=== PATIENT | male | born 1945 | race Caucasian/White ===

== ENCOUNTER 2024-08-05 01:52 | Inpatient (IN) | payer OTHER, SELFPAY ==
--- NOTE | 2024-08-05 | ECG_ITS ---
Test Reason : qtc Blood Pressure : / mmHG Vent. Rate : 065 BPM Atrial Rate : 065 BPM P-R Int : 188 ms QRS Dur : 146 ms QT Int : 472 ms P-R-T Axes : 086 -53 043 degrees QTc Int : 490 ms Normal sinus rhythm Right bundle branch block Left anterior fascicular block Bifascicular block Minimal voltage criteria for LVH, may be normal variant ( R in aVL ) Abnormal ECG No previous ECGs available Referred By: Karla Mackey Electronically Signed By:DORIS CHOWDHURY
[2024-08-05 02:22] VITALS: BP 150/67; PULSE 59; RESP 16; TEMP 36.1; O2SAT 100
[2024-08-05 03:08] VITALS: BMI 34.5
--- NOTE | 2024-08-05 05:43 | PC.ADMIT ---
Danny Duarte is a 79 years old male with active medical problems for parkinson's disease, HTN, CAD, RBBB with bradycardia and CHF, who presents to [facility] ED via EMS for c/o Val. Per records from [facility], starting June of 2024, pt begun decompensating. This is his 3rd time being sectioned in his community for disorganized behavior. pt continues to have hyperreligious deluisions thinking he's the Messiah. pt also have delusions about being involved in [place] conflict. pt believes the [place] forces are monitoring him, and he's been acting on these delusions by going down the halls of his apartments naked and knocking on his neighbors doors. His precipitating factor for all these behaviors according to his sister in-law and psychiatrist is as a result of the loss of his brother 3months ago and medication adherence is also unclear. Pt arrived on S1 on 08/05/24 with admitting diagnosis for bipolar d/o with val.pt is alert and oriented x3 with limited insight into situation , signed a CV, on 5mins check. pt is calm and pleasant, engaging, maintaining appropriate eye contact during interactions, and complaint with admission process. pt is [place], uses bilateral hearing aides that need to be charged. pt presents with a happy mood, full range affect, pressured speech and is quite grandiose with baptist content, saying he is the Messiah.pt denied pain. pt denied SI/HI/AVH. VSS unremarkable. pt has no visible skin issues excpet he does have bilateral lower extremity non-pitting edema which he wears TEDs. Med. rec completed and provider notified. Hospitalist consulted for medical clearance. Belongings inventoried and secured.
[2024-08-05 08:08] LABS: Valproate 59.3 mcg/mL (50.0-100.0)
--- NOTE | 2024-08-05 08:25 | HO.PSYADMNOT ---
HPI Date of Service: 08/05/24 Chief Complaint: Medical history Sources of Information: patient interviewed, chart reviewed and crisis/core team assessment reviewed HPI Subjective Notes: Gaines Warning (given and shows understanding) and Conditional Voluntary Narrative: Mr. Duarte is a 79 year-old male with hx of Bipolar Disorder. He was brought to [facility] presenting with symptoms of angeli including grandiose delusions thinking that he is the Messiah, labile, hyperverbal, decreased need for sleep. He denies SI/HI. Per crisis report, pt was knocking on people's door at 2am and neighbors called the police. According to [facility] records, pt was recently discharged on 07/26/24 from [facility] after treatment of angeli. Utox negative for cocaine/opioids/fentanyl. THC not checked, which pt reports using. BAL negative. On the unit, pt presents with grandiose and labile affect. He reports he is the Messiah. He denies that he hears voices telling him that he is the Messiah but receives messages from God although reports does not hear God's voice. He reports he the task of saving Jews from evils of others. He reports he has to deliver sermons to the world. He reports he has unlimited amounts of money because his money comes from [place] economic system, not from world economy. He reports he was knocking on neighbor's doors at around 2am. He reports he was reliving the holocaust that night and was alerting people. He denies any plan or thoughts of wanting to hurt anyone but does admit that he was yelling racial slurs to people on the streets because he was sure they were trying to harm Jews. He reports using marijuana, which he reports makes him even smarter, I am a genious, even smarter than [facility]. He wants to encouraged everyone to smoke cannabis because he believes it opens your mind, you should try it. He is upset about people not believing that he is the Messiah. He is calling several times from the unit to his sister in law hoping she will finally accept that I am not crazy, I am the Messiah! He reports he does not need to sleep and always feels rested. Collateral information gathered from sister in law- Michelle who reports pt has been calling them several times during the day and night telling them that he is the Messaih. He also insisting that the family must use cannabis and insists on talking with his niece about it. Michelle reports she has received calls from apartment complex where he resides stating that he is knocking on neighrbors' door very late at night and once showed up naked to one neighbor which later he had reported that he was feeling lonely. Collateral information gathered from his psych prescribed, Nemo who reports that she has worked with him for the past 2 years. Usually when stable, very calm and polite. She reports he had knee surgery about a year ago and when transition to rehab mood stabilizer was stopped. She reports about 9 months ago he started to present with increase symptoms of angeli as described above (grandiose delusions, decreased need for sleep labile, hyperverbal) and it has been difficult to stabilize him. He has been for a long time on abilify and depakote. Past Psychiatric History: Inpt: about 4 inpt admission. Most recently 07/26 at [facility] OP:Nemo Alexandra at [facility] [phone] Past med trials: lithium (tremor), abilify Hx of suicide attempt: . Medical Evaluation Reviewed: Yes cbc with slight elevation in leukocytosis WBC 12, afebrile. CMP no electrolyte abnormalities, BUN 24, Cr 1.24 LFts wnl. Valproic level on admission at [facility] was 11.3 which indicates pt not taking depakote as prescribed. [facility] Family History: unknown Social History: Pt from [place], [place]. Never , no children. He has a brother in [facility]. Substance History: daily use of cannabinoids. utox for canabbinoids not completed to confirm this. Trauma History: denies Diagnostics Vital Signs (24Hr): Vital Signs - 24 hr 08/05/24 02:22 Temperature 97 F Pulse Rate 59 Respiratory Rate 16 Blood Pressure 150/67 H Pulse Oximetry 100 Oxygen Delivery Method Room Air BMI result Body Mass Index 34.5 Labs 08/06/24 07:31 Labs: Laboratory Results - last 48 hr 08/05/24 07:33 Valproic Acid 59.3 Meds/Allergies Meds Home Medications ?Medication ?Instructions ?Recorded ?Confirmed ?Type DEKAs Plus (folic acid) 1 cap PO DAILY 08/05/24 08/05/24 History Depakote 750 mg PO BID 08/05/24 08/05/24 History aripiprazole 20 mg tablet 20 mg PO DAILY 08/05/24 08/05/24 History aspirin 81 mg chewable tablet 1 tab PO DAILY 08/05/24 08/05/24 History atorvastatin 10 mg tablet 10 mg PO DAILY 08/05/24 08/05/24 History bumetanide 2 mg PO DAILY 08/05/24 08/05/24 History ferrous sulfate 324 mg PO DAILY 08/05/24 08/05/24 History hydrochlorothiazide 25 mg tablet 25 mg PO DAILY 08/05/24 08/05/24 History melatonin 5 mg tablet 5 mg PO BEDTIME PRN Sleep 08/05/24 08/05/24 History polyethylene glycol 3350 17 gram 17 g PO DAILY PRN constipation 08/05/24 08/05/24 History oral powder packet potassium chloride 20 meq PO DAILY 08/05/24 08/05/24 History quetiapine 50 mg tablet 50 mg PO Q6H PRN Insomnia, 08/05/24 08/06/24 History anxiety, agitation senna 2 tab PO BEDTIME 08/05/24 08/05/24 History tamsulosin 0.4 mg capsule 0.4 mg PO DAILY 08/05/24 08/05/24 History trazodone 100 mg tablet 100 mg PO BEDTIME 08/05/24 08/05/24 History apixaban 2.5 mg tablet (Eliquis) 2.5 mg PO BID 08/06/24 08/06/24 History Allergies Allergies Allergy/AdvReac Type Severity Reaction Status Date / Time Unable to Assess Allergy Verified 08/05/24 03:15 Mental Status Exam Mental Status Exam Narrative: Appearance: wearing casual clothing, fair hygiene, in NAD Behavior: overly friendly Psychomotor: no agitation or retardation noted. Noted bilateral cogwheel, resting tremors- s/s of Parkinsonism. Speech: clear, regular rate, hyperverbal, spontaneous TP: some flight of ideas but mostly repetitive about grandiose delusions of being the messiah TC: being the messiah Mood: great Affect: labile SI: none HI: none VH/AH: internally preoccupied Delusions: grandiose delusions Insight/judgment: impaired x 2. memory/cog: alert, oriented x 3. Assessment & Plan Assessment & Plan (1) Bipolar 1 disorder, manic, moderate: Status: Acute Code(s): F31.12 - Bipolar disorder, current episode manic without psychotic features, moderate Plan Mr. Duarte is a 79 year-old male with hx of Bipolar Disorder type one. currently presenting with manic episode including decrease need for sleep, grandiose delusions of being the messiah, unlimited amounts of money coming from God.He has had 3 inpt psychiatric admission in the past 2 months. He is currently on depakote and abilify. noted parkinsonism. spoke with sister in law. We discussed risks, benefits and alternative treatment options. will add olanzapine prn, may schedule some at night due to poor sleep. PLAN 1. admit to S1, CV, 15 minutes checks for safety 2. check depakote level tomorrow morning 3. continue abilify, but will add olanzapine 10mg po qhs with prn doses. 4. aftercare planning. Patient educated on: diagnosis, medication risk/benefits and substance abuse Reason for continued inpatient stay Substantial Risk for: harm to others and inability to function Statement Statement: I have reviewed the history and physical and performed a pertinent examination on my patient. No changes have occurred unless specified. If the History and Physical was not performed prior to admission, the Hospitalist's service will be consulted for completing the admission physical. Time Spent With Patient Time: Total time managing care of this patient today ____ minutes.
[2024-08-05 10:14] VITALS: BP 145/93; PULSE 68; RESP 16; TEMP 36.4; O2SAT 98
[2024-08-05] MEDS: hydroCHLOROthiazide 25 MG TABLET PO (10:14)
[2024-08-05] MEDS: Divalproex Sodium 250 MG TABLET.DR 750 MG PO ×2 (10:14→20:33)
[2024-08-05] MEDS: Aspirin 81 MG TAB.CHEW PO (10:15)
[2024-08-05] MEDS: Tamsulosin HCL 0.4 MG CAPSULE PO (10:15)
[2024-08-05] MEDS: Atorvastatin Calcium 10 MG TABLET PO (10:15)
[2024-08-05] MEDS: Potassium Chloride ER 20 MEQ TAB.ER.PRT PO (10:15)
[2024-08-05] MEDS: ARIPiprazole 20 MG TABLET PO (10:15)
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
[2024-08-05 20:00] VITALS: BP 119/56; PULSE 69; RESP 16; TEMP 36.3; O2SAT 96
[2024-08-05] MEDS: traZODone HCL 100 MG TABLET PO (20:34)
[2024-08-06 08:03] LABS: Estimated Average Glucose 137 mg/dL; Hemoglobin A1C 165.1783 umol/L; Hemoglobin A1c % 6.4 % (<6.0); Total Hemoglobin (HGBA1C) 3583.8074 umol/L
[2024-08-06 08:14] LABS: Alanine Aminotransferase 29 U/L (0-40); Albumin Level 3.9 g/dL (3.5-5.0); Alkaline Phosphatase 67 U/L (39-117); Anion Gap 11 (12-20); Aspartate Amino Transferase 24 U/L (5-37); Bilirubin Total 0.7 mg/dL (0.0-1.0); Blood Urea Nitrogen 28 mg/dL (9-16); Calcium 9.6 mg/dL (8.4-10.2); Carbon Dioxide 29 mmol/L (22-29); Chloride 101 mmol/L (96-108); Cholesterol 133 mg/dL (<200); Estimated Glomerular Filt Rate > 60; Glucose Fasting 130 mg/dL (60-99); HDL Cholesterol 55 mg/dL (>40); LDL Cholesterol Calculated 59 mg/dL (<100); Potassium 3.5 mmol/L (3.3-5.1); Sodium 137 mmol/L (135-145); Total Protein 6.8 g/dL (6.5-8.0); Triglycerides 97 mg/dL (<150)
[2024-08-06 08:28] LABS: Thyroid Stimulating Hormone 0.87 uIU/mL (0.32-4.0)
[2024-08-06 08:35] LABS: Vitamin B12 547 pg/mL (200-900)
[2024-08-06 09:05] VITALS: BP 146/63; PULSE 82; RESP 18; TEMP 36.6; O2SAT 95
[2024-08-06] MEDS: Tamsulosin HCL 0.4 MG CAPSULE PO (09:08)
[2024-08-06] MEDS: ARIPiprazole 20 MG TABLET PO (09:08)
[2024-08-06] MEDS: Potassium Chloride ER 20 MEQ TAB.ER.PRT PO (09:08)
[2024-08-06] MEDS: Atorvastatin Calcium 10 MG TABLET PO (09:08)
[2024-08-06] MEDS: Aspirin 81 MG TAB.CHEW PO (09:08)
[2024-08-06] MEDS: hydroCHLOROthiazide 25 MG TABLET PO (09:08)
[2024-08-06] MEDS: Divalproex Sodium 250 MG TABLET.DR 750 MG PO ×2 (09:08→20:50)
--- NOTE | 2024-08-06 11:21 | PHA.MEDREC ---
Pharmacy Consult ? Medication Reconciliation Pharmacy has reviewed the medication reconciliation done by nursing using med list from [facility]. Notably, Apixaban 2.5mg BID was missing and it seems like their home Depakote ER was interchanged to an IR formulation at [facility]. Will alert provider that patient should be on Apixaban and ensure they are okay to stay with the IR Depakote that is ordered.
[2024-08-06] MEDS: Apixaban 2.5 MG TABLET PO (12:17)
--- NOTE | 2024-08-06 15:59 | HO.PSYCHPN ---
Subjective Subjective Date of Service: 08/07/24 Reason For Visit: Medical history Subjective Notes: Conditional Voluntary Interim History: Pt slept only 3hrs. He was up at 6am calling sister in law insisting on her trying cannabis and accepting that he is the [facility]. He had showed, defecated in the shower and tried to pushed down the drain with his feet, staff trying to redirect, but pt stated everything is okay, I'm the Messiah. He continues to present as hyperverbal. 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 He insists he is not a patient here, but understands that God may want him here to help others. Mental Status Exam Mental Status Exam Narrative: Appearance: wearing casual clothing, fair hygiene, in NAD Behavior: overly friendly Psychomotor: no agitation or retardation noted Speech: clear, regular rate, hyperverbal, spontaneous TP: some flight of ideas but mostly repetitive about grandiose delusions of being the [facility] TC: being the [facility] Mood: great Affect: labile SI: none HI: none VH/AH: internally preoccupied Delusions: grandiose delusions Insight/judgment: impaired x 2. memory/cog: alert, oriented x 3. Diagnostics Vital Signs (24Hr): Vital Signs - 24 hr 08/05/24 20:00 08/06/24 09:05 Temperature 97.4 F 97.8 F Pulse Rate 69 82 Respiratory Rate 16 18 Blood Pressure 119/56 L 146/63 H Pulse Oximetry 96 95 Oxygen Delivery Method Room Air Room Air BMI result Body Mass Index 34.5 Labs 08/06/24 07:31 Labs: Laboratory Results - last 48 hr 08/05/24 08/06/24 07:33 07:31 Sodium 137 Potassium 3.5 Chloride 101 Carbon Dioxide 29 Anion Gap 11 L BUN 28 H Creatinine 1.14 Estim Creat Clear Calc 70.0 Estimated GFR > 60 Fasting Glucose 130 H Estimat Average Glucose 137 Hemoglobin A1c % 6.4 H Calcium 9.6 Total Bilirubin 0.7 AST 24 ALT 29 Alkaline Phosphatase 67 Total Protein 6.8 Albumin 3.9 Triglycerides 97 Cholesterol 133 LDL Cholesterol, Calc 59 HDL Cholesterol 55 Vitamin B12 547 TSH 0.87 Valproic Acid 59.3 Medications Medications Current Medications Acetaminophen (Acetaminophen 325 Mg Tablet) 650 mg PO Q6H PRN PRN Reason: Headache/Pain Mild Scale (1-3) Al Hydroxide/Mg Hydroxide (Magnesium Hydrox/Alum Hydrox 30 Ml Oral.Susp) 30 ml PO Q6H PRN PRN Reason: Heartburn/Nausea Apixaban (Apixaban 2.5 Mg Tablet) 2.5 mg PO BID [facility] Aripiprazole (Aripiprazole 20 Mg Tablet) 20 mg PO DAILY [facility] Last Admin: 08/06/24 09:08 Dose: 20 mg Aspirin (Aspirin 81 Mg Tab.Chew) 81 mg PO DAILY [facility] Last Admin: 08/06/24 09:08 Dose: 81 mg Atorvastatin Calcium (Atorvastatin Calcium 10 Mg Tablet) 10 mg PO DAILY [facility] Last Admin: 08/06/24 09:08 Dose: 10 mg Divalproex Sodium (Divalproex Sodium 250 Mg Tablet.) 750 mg PO BID [facility] Last Admin: 08/06/24 09:08 Dose: 750 mg Ferrous Sulfate (Ferrous Sulfate 324 Mg Tablet.) 324 mg PO DAILY [facility] Hydrochlorothiazide (Hydrochlorothiazide 25 Mg Tablet) 25 mg PO DAILY [facility]; Protocol Last Admin: 08/06/24 09:08 Dose: 25 mg Hydroxyzine HCl (Hydroxyzine Hcl 25 Mg Tablet) 25 mg PO Q6H PRN PRN Reason: Anxiety Magnesium Hydroxide (Milk Of Magnesia 30 Ml Oral.Susp) 30 ml PO DAILY PRN PRN Reason: Constipation Multivitamins/Vitamin C (Multivitamin Tablet) 1 tab PO DAILY [facility] Nicotine Polacrilex (Nicotine Polacrilex 2 Mg Gum) 2 mg BUCCAL Q2H PRN PRN Reason: Nicotine Cravings Non-Formulary Medication (Bumetanide) 2 mg PO DAILY [facility] Olanzapine (Olanzapine Odt 10 Mg Tab.Rapdis) 10 mg TRANSLINGU Q6H PRN PRN Reason: agitation Olanzapine (Olanzapine Odt 10 Mg Tab.Rapdis) 10 mg TRANSLINGU BEDTIME [facility] Polyethylene Glycol (Polyethylene Glycol 3350 17 Gm Powd.Pack) 17 gm PO DAILY PRN PRN Reason: constipation Potassium Chloride (Potassium Chloride Er 20 Meq Tab.Er.Prt) 20 meq PO DAILY [facility] Last Admin: 08/06/24 09:08 Dose: 20 meq Tamsulosin HCl (Tamsulosin Hcl 0.4 Mg Capsule) 0.4 mg PO DAILY [facility] Last Admin: 08/06/24 09:08 Dose: 0.4 mg Trazodone HCl (Trazodone Hcl 50 Mg Tablet) 50 mg PO BEDTIME MRX1 PRN PRN Reason: Insomnia Trazodone HCl (Trazodone Hcl 100 Mg Tablet) 100 mg PO BEDTIME FE Last Admin: 08/05/24 20:34 Dose: 100 mg Allergies Allergies Allergy/AdvReac Type Severity Reaction Status Date / Time Unable to Assess Allergy Verified 08/05/24 03:15 Assessment & Plan Assessment & Plan (1) Bipolar 1 disorder, manic, moderate: Status: Acute Code(s): F31.12 - Bipolar disorder, current episode manic without psychotic features, moderate Plan Increase Olanzapine 20mg po qhs. continue abilify and depakote 750mg po BID. Reason for continued inpatient stay Substantial Risk for: inability to function Time Spent With Patient Time: Total time managing care of this patient today ____ minutes.
[2024-08-06 20:00] VITALS: BP 153/67; PULSE 62; RESP 16; TEMP 36.8; O2SAT 98
[2024-08-06] MEDS: traZODone HCL 100 MG TABLET PO (20:50)
[2024-08-06] MEDS: OLANZapine ODT 10 MG TAB.RAPDIS TRANSLINGU (20:51)
--- NOTE | 2024-08-06 21:57 | ECG_ITS ---
Test Reason : CP Blood Pressure : / mmHG Vent. Rate : 059 BPM Atrial Rate : 000 BPM P-R Int : 000 ms QRS Dur : 150 ms QT Int : 474 ms P-R-T Axes : 000 -53 034 degrees QTc Int : 469 ms Normal sinus rhythm Premature atrial complexes Right bundle branch block Left anterior fascicular block Bifascicular block Minimal voltage criteria for LVH, may be normal variant ( R in aVL ) Abnormal ECG When compared with ECG of 06-AUG-2024 21:57, Premature atrial complexes present Referred By: Karla Mackey Electronically Signed By:DORIS CHOWDHURY
--- NOTE | 2024-08-06 21:58 | ECG_ITS ---
Test Reason : CP Blood Pressure : / mmHG Vent. Rate : 057 BPM Atrial Rate : 057 BPM P-R Int : 190 ms QRS Dur : 142 ms QT Int : 482 ms P-R-T Axes : 060 -50 018 degrees QTc Int : 469 ms Sinus bradycardia Right bundle branch block Left anterior fascicular block Bifascicular block Minimal voltage criteria for LVH, may be normal variant ( R in aVL ) Septal infarct (cited on or before 06-AUG-2024) Abnormal ECG When compared with ECG of 06-AUG-2024 21:57, No significant changes seen Referred By: Karla Mackey Electronically Signed By:DORIS CHOWDHURY
[2024-08-07 07:52] VITALS: BP 134/68; PULSE 65; RESP 18; TEMP 36.7; O2SAT 97
[2024-08-07] MEDS: Divalproex Sodium 250 MG TABLET.DR 750 MG PO ×2 (07:59→20:18)
[2024-08-07] MEDS: Multivitamin TABLET 1 TAB PO (07:59)
[2024-08-07] MEDS: Potassium Chloride ER 20 MEQ TAB.ER.PRT PO (07:59)
[2024-08-07] MEDS: Apixaban 2.5 MG TABLET PO ×2 (08:00→20:19)
[2024-08-07] MEDS: Aspirin 81 MG TAB.CHEW PO (08:00)
[2024-08-07] MEDS: Ferrous Sulfate 324 MG TABLET.DR PO (08:00)
[2024-08-07] MEDS: hydroCHLOROthiazide 25 MG TABLET PO (08:00)
[2024-08-07] MEDS: Atorvastatin Calcium 10 MG TABLET PO (08:00)
[2024-08-07] MEDS: ARIPiprazole 20 MG TABLET PO (08:00)
[2024-08-07] MEDS: Tamsulosin HCL 0.4 MG CAPSULE PO (08:00)
[2024-08-07] MEDS: OLANZapine ODT 10 MG TAB.RAPDIS TRANSLINGU (18:52)
[2024-08-07] MEDS: hydrOXYzine HCL 25 MG TABLET PO (18:52)
[2024-08-07 20:00] VITALS: BP 98/58; PULSE 69; RESP 16; TEMP 36.5; O2SAT 95
[2024-08-07] MEDS: traZODone HCL 100 MG TABLET PO (20:18)
[2024-08-07] MEDS: OLANZapine ODT 10 MG TAB.RAPDIS 20 MG TRANSLINGU (20:19)
[2024-08-07] MEDS: LORazepam 1 MG TABLET PO (20:20)
--- NOTE | 2024-08-07 20:28 | P.PNPSI_ITS ---
Subjective Subjective Date of Service: 08/07/24 Reason For Visit: Medical history Subjective Notes: Conditional Voluntary Interim History: Pt slept only 3 hrs. 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 He continues to call several times to multiple family members because he is upset they are not accepting his belief that he is the [place], also insisting that other need to use cannabis to open their minds. He is irritable at times when redirected, specially when intrusive to peers and attempting to preach to them. Medication Compliance: Yes Side effects from medications: No Attending Groups: No Mental Status Exam Mental Status Exam Narrative: Appearance: wearing casual clothing, fair hygiene, in NAD Behavior: overly friendly Psychomotor: no agitation or retardation noted Speech: clear, regular rate, hyperverbal, spontaneous TP: some flight of ideas but mostly repetitive about grandiose delusions of being the messiah TC: being the messiah Mood: great Affect: labile SI: none HI: none VH/AH: internally preoccupied Delusions: grandiose delusions Insight/judgment: impaired x 2. memory/cog: alert, oriented x 3. Diagnostics Vital Signs (24Hr): Vital Signs - 24 hr 08/07/24 07:52 Temperature 98.1 F Pulse Rate 65 Respiratory Rate 18 Blood Pressure 134/68 Pulse Oximetry 97 Oxygen Delivery Method Room Air BMI result Body Mass Index 34.5 Labs 08/06/24 07:31 Labs: Laboratory Results - last 48 hr 08/06/24 07:31 Sodium 137 Potassium 3.5 Chloride 101 Carbon Dioxide 29 Anion Gap 11 L BUN 28 H Creatinine 1.14 Estim Creat Clear Calc 70.0 Estimated GFR > 60 Fasting Glucose 130 H Estimat Average Glucose 137 Hemoglobin A1c % 6.4 H Calcium 9.6 Total Bilirubin 0.7 AST 24 ALT 29 Alkaline Phosphatase 67 Total Protein 6.8 Albumin 3.9 Triglycerides 97 Cholesterol 133 LDL Cholesterol, Calc 59 HDL Cholesterol 55 Vitamin B12 547 TSH 0.87 Medications Medications Current Medications Acetaminophen (Acetaminophen 325 Mg Tablet) 650 mg PO Q6H PRN PRN Reason: Headache/Pain Mild Scale (1-3) Al Hydroxide/Mg Hydroxide (Magnesium Hydrox/Alum Hydrox 30 Ml Oral.Susp) 30 ml PO Q6H PRN PRN Reason: Heartburn/Nausea Apixaban (Apixaban 2.5 Mg Tablet) 2.5 mg PO BID FE Last Admin: 08/07/24 20:19 Dose: 2.5 mg Aripiprazole (Aripiprazole 20 Mg Tablet) 20 mg PO DAILY [facility] Last Admin: 08/07/24 08:00 Dose: 20 mg Aspirin (Aspirin 81 Mg Tab.Chew) 81 mg PO DAILY [facility] Last Admin: 08/07/24 08:00 Dose: 81 mg Atorvastatin Calcium (Atorvastatin Calcium 10 Mg Tablet) 10 mg PO DAILY [facility] Last Admin: 08/07/24 08:00 Dose: 10 mg Divalproex Sodium (Divalproex Sodium 250 Mg Tablet.Dr) 750 mg PO BID [facility] Last Admin: 08/07/24 20:18 Dose: 750 mg Ferrous Sulfate (Ferrous Sulfate 324 Mg Tablet.) 324 mg PO DAILY [facility] Last Admin: 08/07/24 08:00 Dose: 324 mg Hydrochlorothiazide (Hydrochlorothiazide 25 Mg Tablet) 25 mg PO DAILY [facility]; Protocol Last Admin: 08/07/24 08:00 Dose: 25 mg Hydroxyzine HCl (Hydroxyzine Hcl 25 Mg Tablet) 25 mg PO Q6H PRN PRN Reason: Anxiety Last Admin: 08/07/24 18:52 Dose: 25 mg Lorazepam (Lorazepam 1 Mg Tablet) 1 mg PO BEDTIME [facility] Last Admin: 08/07/24 20:20 Dose: 1 mg Magnesium Hydroxide (Milk Of Magnesia 30 Ml Oral.Susp) 30 ml PO DAILY PRN PRN Reason: Constipation Multivitamins/Vitamin C (Multivitamin Tablet) 1 tab PO DAILY [facility] Last Admin: 08/07/24 07:59 Dose: 1 tab Nicotine Polacrilex (Nicotine Polacrilex 2 Mg Gum) 2 mg BUCCAL Q2H PRN PRN Reason: Nicotine Cravings Non-Formulary Medication (Bumetanide) 2 mg PO DAILY [facility] Olanzapine (Olanzapine Odt 10 Mg Tab.Rapdis) 10 mg TRANSLINGU Q6H PRN PRN Reason: agitation Last Admin: 08/07/24 18:52 Dose: 10 mg Olanzapine (Olanzapine Odt 10 Mg Tab.Rapdis) 20 mg TRANSLINGU BEDTIME [facility] Last Admin: 08/07/24 20:19 Dose: 20 mg Polyethylene Glycol (Polyethylene Glycol 3350 17 Gm Powd.Pack) 17 gm PO DAILY PRN PRN Reason: constipation Potassium Chloride (Potassium Chloride Er 20 Meq Tab.Er.Prt) 20 meq PO DAILY [facility] Last Admin: 08/07/24 07:59 Dose: 20 meq Tamsulosin HCl (Tamsulosin Hcl 0.4 Mg Capsule) 0.4 mg PO DAILY [facility] Last Admin: 08/07/24 08:00 Dose: 0.4 mg Trazodone HCl (Trazodone Hcl 50 Mg Tablet) 50 mg PO BEDTIME MRX1 PRN PRN Reason: Insomnia Trazodone HCl (Trazodone Hcl 100 Mg Tablet) 100 mg PO BEDTIME [facility] Last Admin: 08/07/24 20:18 Dose: 100 mg Allergies Allergies Allergy/AdvReac Type Severity Reaction Status Date / Time Unable to Assess Allergy Verified 08/05/24 03:15 Assessment & Plan Assessment & Plan (1) Bipolar 1 disorder, manic, moderate: Status: Acute Code(s): F31.12 - Bipolar disorder, current episode manic without psychotic features, moderate Plan Mr. Duarte is a 79 year-old male with hx of Bipolar Disorder type one. currently presenting with manic episode including decrease need for sleep, grandiose delusions of being the messiah, unlimited amounts of money coming from God.He has had 3 inpt psychiatric admission in the past 2 months. He is currently on depakote and abilify. noted parkinsonism. spoke with sister in law, pending collateral information from psych prescriber to get better idea of medication trials. will add olanzapine prn, may schedule some at night due to poor sleep. PLAN 1. olanzapine 10mg po qhs, abilify 20mg po daily, depakote 750mg po BID. Reason for continued inpatient stay Substantial Risk for: harm to others and inability to function Time Spent With Patient Time: Total time managing care of this patient today ____ minutes.
[2024-08-08] MEDS: hydrOXYzine HCL 25 MG TABLET PO ×3 (00:59→20:51)
[2024-08-08] MEDS: OLANZapine ODT 10 MG TAB.RAPDIS TRANSLINGU ×2 (01:00→12:04)
[2024-08-08] MEDS: traZODone HCL 50 MG TABLET PO (01:00)
[2024-08-08] MEDS: Acetaminophen 325 MG TABLET 650 MG PO (01:49)
[2024-08-08 08:00] VITALS: BP 133/63; PULSE 66; RESP 16; TEMP 36.4; O2SAT 99
[2024-08-08] MEDS: Divalproex Sodium 250 MG TABLET.DR 750 MG PO ×2 (08:40→20:51)
[2024-08-08] MEDS: Multivitamin TABLET 1 TAB PO (08:40)
[2024-08-08] MEDS: Apixaban 2.5 MG TABLET PO ×2 (08:41→20:51)
[2024-08-08] MEDS: Atorvastatin Calcium 10 MG TABLET PO (08:41)
[2024-08-08] MEDS: ARIPiprazole 20 MG TABLET PO (08:41)
[2024-08-08] MEDS: Tamsulosin HCL 0.4 MG CAPSULE PO (08:42)
[2024-08-08] MEDS: Ferrous Sulfate 324 MG TABLET.DR PO (08:42)
[2024-08-08] MEDS: Aspirin 81 MG TAB.CHEW PO (08:42)
[2024-08-08 08:43] VITALS: BP 133/63
[2024-08-08] MEDS: hydroCHLOROthiazide 25 MG TABLET PO (08:43)
[2024-08-08] MEDS: Potassium Chloride ER 20 MEQ TAB.ER.PRT PO (08:43)
--- NOTE | 2024-08-08 16:26 | P.PNPSI_ITS ---
Subjective Subjective Date of Service: 08/08/24 Reason For Visit: Medical history Subjective Notes: Conditional Voluntary Interim History: Pt slept 3 hrs. 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 He continues to call several times to multiple family members because he is upset they are not accepting his belief that he is the [place], also insisting that other need to use cannabis to open their minds . He is irritable at times when redirected, specially when intrusive to peers and attempting to preach to them. Review of Systems Review of Systems NO SOB, no chest pain. No changes in vision. denies loose stools or constipation. denies pain. Yes Unobtainable due to mental status Mental Status Exam Mental Status Exam Narrative: Appearance: wearing casual clothing, fair hygiene, in NAD Behavior: overly friendly Psychomotor: no agitation or retardation noted Speech: clear, regular rate, hyperverbal, spontaneous TP: some flight of ideas but mostly repetitive about grandiose delusions of being the messiah TC: being the messiah Mood: great Affect: labile SI: none HI: none VH/AH: internally preoccupied Delusions: grandiose delusions Insight/judgment: impaired x 2. memory/cog: alert, oriented x 3. Diagnostics Vital Signs (24Hr): Vital Signs - 24 hr 08/07/24 20:00 08/08/24 08:00 08/08/24 08:43 Temperature 97.7 F 97.5 F Pulse Rate 69 66 Respiratory Rate 16 16 Blood Pressure 98/58 L 133/63 133/63 Pulse Oximetry 95 99 Oxygen Delivery Method Room Air Room Air BMI result Body Mass Index 34.5 Labs 08/06/24 07:31 Medications Medications Current Medications Acetaminophen (Acetaminophen 325 Mg Tablet) 650 mg PO Q6H PRN PRN Reason: Headache/Pain Mild Scale (1-3) Last Admin: 08/08/24 01:49 Dose: 650 mg Al Hydroxide/Mg Hydroxide (Magnesium Hydrox/Alum Hydrox 30 Ml Oral.Susp) 30 ml PO Q6H PRN PRN Reason: Heartburn/Nausea Apixaban (Apixaban 2.5 Mg Tablet) 2.5 mg PO BID [facility] Last Admin: 08/08/24 08:41 Dose: 2.5 mg Aripiprazole (Aripiprazole 20 Mg Tablet) 20 mg PO DAILY [facility] Last Admin: 08/08/24 08:41 Dose: 20 mg Aspirin (Aspirin 81 Mg Tab.Chew) 81 mg PO DAILY [facility] Last Admin: 08/08/24 08:42 Dose: 81 mg Atorvastatin Calcium (Atorvastatin Calcium 10 Mg Tablet) 10 mg PO DAILY [facility] Last Admin: 08/08/24 08:41 Dose: 10 mg Divalproex Sodium (Divalproex Sodium 250 Mg Tablet.) 750 mg PO BID [facility] Last Admin: 08/08/24 08:40 Dose: 750 mg Ferrous Sulfate (Ferrous Sulfate 324 Mg Tablet.) 324 mg PO DAILY [facility] Last Admin: 08/08/24 08:42 Dose: 324 mg Hydrochlorothiazide (Hydrochlorothiazide 25 Mg Tablet) 25 mg PO DAILY [facility]; Protocol Last Admin: 08/08/24 08:43 Dose: 25 mg Hydroxyzine HCl (Hydroxyzine Hcl 25 Mg Tablet) 25 mg PO Q6H PRN PRN Reason: Anxiety Last Admin: 08/08/24 12:04 Dose: 25 mg Lorazepam (Lorazepam 1 Mg Tablet) 1 mg PO BEDTIME [facility] Last Admin: 08/07/24 20:20 Dose: 1 mg Magnesium Hydroxide (Milk Of Magnesia 30 Ml Oral.Susp) 30 ml PO DAILY PRN PRN Reason: Constipation Multivitamins/Vitamin C (Multivitamin Tablet) 1 tab PO DAILY [facility] Last Admin: 08/08/24 08:40 Dose: 1 tab Nicotine Polacrilex (Nicotine Polacrilex 2 Mg Gum) 2 mg BUCCAL Q2H PRN PRN Reason: Nicotine Cravings Non-Formulary Medication (Bumetanide) 2 mg PO DAILY [facility] Olanzapine (Olanzapine Odt 10 Mg Tab.Rapdis) 10 mg TRANSLINGU Q6H PRN PRN Reason: agitation Last Admin: 08/08/24 12:04 Dose: 10 mg Olanzapine (Olanzapine Odt 10 Mg Tab.Rapdis) 20 mg TRANSLINGU BEDTIME [facility] Last Admin: 08/07/24 20:19 Dose: 20 mg Polyethylene Glycol (Polyethylene Glycol 3350 17 Gm Powd.Pack) 17 gm PO DAILY PRN PRN Reason: constipation Potassium Chloride (Potassium Chloride Er 20 Meq Tab.Er.Prt) 20 meq PO DAILY [facility] Last Admin: 08/08/24 08:43 Dose: 20 meq Tamsulosin HCl (Tamsulosin Hcl 0.4 Mg Capsule) 0.4 mg PO DAILY [facility] Last Admin: 08/08/24 08:42 Dose: 0.4 mg Trazodone HCl (Trazodone Hcl 50 Mg Tablet) 50 mg PO BEDTIME MRX1 PRN PRN Reason: Insomnia Last Admin: 08/08/24 01:00 Dose: 50 mg Trazodone HCl (Trazodone Hcl 100 Mg Tablet) 100 mg PO BEDTIME [facility] Last Admin: 08/07/24 20:18 Dose: 100 mg Allergies Allergies Allergy/AdvReac Type Severity Reaction Status Date / Time Unable to Assess Allergy Verified 08/05/24 03:15 Assessment & Plan Assessment & Plan (1) Bipolar 1 disorder, manic, moderate: Status: Acute Code(s): F31.12 - Bipolar disorder, current episode manic without psychotic features, moderate Plan Mr. Duarte is a 79 year-old male with hx of Bipolar Disorder type one. currently presenting with manic episode including decrease need for sleep, grandiose delusions of being the messiah, unlimited amounts of money coming from God.He has had 3 inpt psychiatric admission in the past 2 months. He is currently on depakote and abilify. noted parkinsonism. spoke with sister in law, pending collateral information from psych prescriber to get better idea of medication trials. will add olanzapine prn, may schedule some at night due to poor sleep. PLAN 1. increase olanzapine 20mg po qhs, abilify 20mg po daily, depakote 750mg po BID. Reason for continued inpatient stay Substantial Risk for: inability to function Time Spent With Patient Time: Total time managing care of this patient today ____ minutes.
[2024-08-08 20:00] VITALS: BP 152/65; PULSE 58; RESP 18; TEMP 36.6; O2SAT 95
[2024-08-08] MEDS: OLANZapine ODT 10 MG TAB.RAPDIS 20 MG TRANSLINGU (20:51)
[2024-08-08] MEDS: LORazepam 1 MG TABLET PO (20:51)
[2024-08-08] MEDS: traZODone HCL 100 MG TABLET PO (20:51)
[2024-08-09] MEDS: traZODone HCL 50 MG TABLET PO (01:34)
[2024-08-09] MEDS: OLANZapine ODT 10 MG TAB.RAPDIS TRANSLINGU ×2 (06:34→14:37)
[2024-08-09 08:00] VITALS: BP 149/67; PULSE 52; RESP 18; TEMP 36.4; O2SAT 98
[2024-08-09] MEDS: Atorvastatin Calcium 10 MG TABLET PO (08:51)
[2024-08-09] MEDS: Apixaban 2.5 MG TABLET PO ×2 (08:51→20:29)
[2024-08-09] MEDS: hydrOXYzine HCL 25 MG TABLET PO (08:51)
[2024-08-09] MEDS: Tamsulosin HCL 0.4 MG CAPSULE PO (08:51)
[2024-08-09] MEDS: Potassium Chloride ER 20 MEQ TAB.ER.PRT PO (08:51)
[2024-08-09] MEDS: ARIPiprazole 20 MG TABLET PO (08:51)
[2024-08-09] MEDS: Divalproex Sodium 250 MG TABLET.DR 750 MG PO ×2 (08:52→20:29)
[2024-08-09] MEDS: Aspirin 81 MG TAB.CHEW PO (08:52)
[2024-08-09] MEDS: Multivitamin TABLET 1 TAB PO (08:52)
[2024-08-09] MEDS: hydroCHLOROthiazide 25 MG TABLET PO (08:52)
[2024-08-09] MEDS: Ferrous Sulfate 324 MG TABLET.DR PO (08:52)
--- NOTE | 2024-08-09 11:30 | MHC.RECOVRN ---
AUDIT-C Brief Intervention Pt had positive screen for unhealthy alcohol use on admission. Attempted to meet with pt to discuss alcohol use and offer resources, pt declined.
[2024-08-09 20:00] VITALS: BP 135/60; PULSE 63; RESP 16; TEMP 36; O2SAT 96
[2024-08-09] MEDS: traZODone HCL 100 MG TABLET PO (20:29)
[2024-08-09] MEDS: LORazepam 1 MG TABLET PO (20:29)
[2024-08-09] MEDS: OLANZapine ODT 10 MG TAB.RAPDIS 20 MG TRANSLINGU (20:29)
--- NOTE | 2024-08-09 21:32 | HO.PSYCHPN ---
Subjective Subjective Date of Service: 08/09/24 Reason For Visit: Medical history Interim History: Pt slept 3 hrs. 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 He continues to call several times to multiple family members because he is upset they are not accepting his belief that he is the [place], also insisting that other need to use cannabis to open their minds . He is irritable at times when redirected, specially when intrusive to peers and attempting to preach to them. Review of Systems Review of Systems NO SOB, no chest pain. No changes in vision. denies loose stools or constipation. denies pain. Yes Unobtainable due to mental status Mental Status Exam Mental Status Exam Narrative: Appearance: wearing casual clothing, fair hygiene, in NAD Behavior: overly friendly Psychomotor: no agitation or retardation noted Speech: clear, regular rate, hyperverbal, spontaneous TP: some flight of ideas but mostly repetitive about grandiose delusions of being the messiah TC: being the messiah Mood: great Affect: labile SI: none HI: none VH/AH: internally preoccupied Delusions: grandiose delusions Insight/judgment: impaired x 2. memory/cog: alert, oriented x 3. Diagnostics Vital Signs (24Hr): Vital Signs - 24 hr 08/09/24 08:00 Temperature 97.5 F Pulse Rate 52 Respiratory Rate 18 Blood Pressure 149/67 H Pulse Oximetry 98 Oxygen Delivery Method Room Air BMI result Body Mass Index 34.5 Labs 08/06/24 07:31 Medications Medications Current Medications Acetaminophen (Acetaminophen 325 Mg Tablet) 650 mg PO Q6H PRN PRN Reason: Headache/Pain Mild Scale (1-3) Last Admin: 08/08/24 01:49 Dose: 650 mg Al Hydroxide/Mg Hydroxide (Magnesium Hydrox/Alum Hydrox 30 Ml Oral.Susp) 30 ml PO Q6H PRN PRN Reason: Heartburn/Nausea Apixaban (Apixaban 2.5 Mg Tablet) 2.5 mg PO BID [facility]S [facility] BEDS AT [facility] Last Admin: 08/09/24 20:29 Dose: 2.5 mg Aripiprazole (Aripiprazole 20 Mg Tablet) 20 mg PO DAILY [facility]S [facility]CLUDE 234 BEDS AT [facility] Last Admin: 08/09/24 08:51 Dose: 20 mg Aspirin (Aspirin 81 Mg Tab.Chew) 81 mg PO DAILY [facility] 234 BEDS AT [facility] Last Admin: 08/09/24 08:52 Dose: 81 mg Atorvastatin Calcium (Atorvastatin Calcium 10 Mg Tablet) 10 mg PO DAILY [facility] 234 BEDS AT [facility] Last Admin: 08/09/24 08:51 Dose: 10 mg Bumetanide (Bumetanide 1 Mg Tablet) 2 mg PO DAILY [facility]CLUDE 234 BEDS AT [facility] Divalproex Sodium (Divalproex Sodium 250 Mg Tablet.Dr) 750 mg PO BID COUNTS [facility]CLUDE 234 BEDS AT [facility] Last Admin: 08/09/24 20:29 Dose: 750 mg Ferrous Sulfate (Ferrous Sulfate 324 Mg Tablet.) 324 mg PO DAILY [facility] 234 BEDS AT [facility] Last Admin: 08/09/24 08:52 Dose: 324 mg Hydrochlorothiazide (Hydrochlorothiazide 25 Mg Tablet) 25 mg PO DAILY [facility] 234 BEDS AT [facility]; Protocol Last Admin: 08/09/24 08:52 Dose: 25 mg Hydroxyzine HCl (Hydroxyzine Hcl 25 Mg Tablet) 25 mg PO Q6H PRN PRN Reason: Anxiety Last Admin: 08/09/24 08:51 Dose: 25 mg Lorazepam (Lorazepam 1 Mg Tablet) 1 mg PO BEDTIME [facility] 234 BEDS AT [facility] Last Admin: 08/09/24 20:29 Dose: 1 mg Magnesium Hydroxide (Milk Of Magnesia 30 Ml Oral.Susp) 30 ml PO DAILY PRN PRN Reason: Constipation Multivitamins/Vitamin C (Multivitamin Tablet) 1 tab PO DAILY [facility] 234 BEDS AT [facility] Last Admin: 08/09/24 08:52 Dose: 1 tab Nicotine Polacrilex (Nicotine Polacrilex 2 Mg Gum) 2 mg BUCCAL Q2H PRN PRN Reason: Nicotine Cravings Olanzapine (Olanzapine Odt 10 Mg Tab.Rapdis) 10 mg TRANSLINGU Q6H PRN PRN Reason: agitation Last Admin: 08/09/24 14:37 Dose: 10 mg Olanzapine (Olanzapine Odt 10 Mg Tab.Rapdis) 20 mg TRANSLINGU BEDTIME [facility]S [facility]CLUDE 234 BEDS AT [facility] Last Admin: 08/09/24 20:29 Dose: 20 mg Polyethylene Glycol (Polyethylene Glycol 3350 17 Gm Powd.Pack) 17 gm PO DAILY PRN PRN Reason: constipation Potassium Chloride (Potassium Chloride Er 20 Meq Tab.Er.Prt) 20 meq PO DAILY [facility] 234 BEDS AT [facility] Last Admin: 08/09/24 08:51 Dose: 20 meq Tamsulosin HCl (Tamsulosin Hcl 0.4 Mg Capsule) 0.4 mg PO DAILY [facility] 234 BEDS AT [facility] Last Admin: 08/09/24 08:51 Dose: 0.4 mg Trazodone HCl (Trazodone Hcl 50 Mg Tablet) 50 mg PO BEDTIME MRX1 PRN PRN Reason: Insomnia Last Admin: 08/09/24 01:34 Dose: 50 mg Trazodone HCl (Trazodone Hcl 100 Mg Tablet) 100 mg PO BEDTIME FE Last Admin: 08/09/24 20:29 Dose: 100 mg Allergies Allergies Allergy/AdvReac Type Severity Reaction Status Date / Time Unable to Assess Allergy Verified 08/05/24 03:15 Assessment & Plan Assessment & Plan (1) Bipolar 1 disorder, manic, moderate: Status: Acute Code(s): F31.12 - Bipolar disorder, current episode manic without psychotic features, moderate Plan Mr. Duarte is a 79 year-old male with hx of Bipolar Disorder type one. currently presenting with manic episode including decrease need for sleep, grandiose delusions of being the messiah, unlimited amounts of money coming from God.He has had 3 inpt psychiatric admission in the past 2 months. He is currently on depakote and abilify. noted parkinsonism. spoke with sister in law, pending collateral information from psych prescriber to get better idea of medication trials. will add olanzapine prn, may schedule some at night due to poor sleep. PLAN 1. increase olanzapine 20mg po qhs, abilify 20mg po daily, depakote 750mg po BID. Reason for continued inpatient stay Substantial Risk for: harm to others and inability to function Time Spent With Patient Time: Total time managing care of this patient today ____ minutes.
[2024-08-10 07:00] VITALS: BMI 34.7
[2024-08-10 08:00] VITALS: BP 127/59; PULSE 65; RESP 16; TEMP 36.4; O2SAT 98
[2024-08-10] MEDS: Apixaban 2.5 MG TABLET PO ×2 (08:30→20:10)
[2024-08-10] MEDS: Atorvastatin Calcium 10 MG TABLET PO (08:30)
[2024-08-10] MEDS: Multivitamin TABLET 1 TAB PO (08:30)
[2024-08-10] MEDS: Bumetanide 1 MG TABLET 2 MG PO (08:31)
[2024-08-10] MEDS: ARIPiprazole 20 MG TABLET PO (08:31)
[2024-08-10] MEDS: Tamsulosin HCL 0.4 MG CAPSULE PO (08:31)
[2024-08-10] MEDS: hydroCHLOROthiazide 25 MG TABLET PO (08:31)
[2024-08-10] MEDS: Potassium Chloride ER 20 MEQ TAB.ER.PRT PO (08:32)
[2024-08-10] MEDS: Ferrous Sulfate 324 MG TABLET.DR PO (08:32)
[2024-08-10] MEDS: Aspirin 81 MG TAB.CHEW PO (08:32)
[2024-08-10] MEDS: Divalproex Sodium 250 MG TABLET.DR 750 MG PO ×2 (09:29→20:10)
--- NOTE | 2024-08-10 13:37 | P.PNPSI_ITS ---
Subjective Subjective Date of Service: 08/10/24 Reason For Visit: Medical history Interim History: The nursing staff reported the patient believes that he survived by and the [employer]. He had been arguing with peers and he slept only 2 hours. The social services analyst reported that at home he lives independently and at baseline he is highly functional but he had been dysregulated for the last 9 months after knee surgery. On interview, the patient reports that he is doing fine and he wants to go back home that there is nothing wrong with him and apparently people are antagonizing to him. Mental Status Exam Mental Status Exam Patient Appearance: Appropriate Patient Orientation: Person and Situation Level of Consciousness: Awake and Appropriate Patient Behavior: Guarded and Passive Mood Description: Withdrawn Affect Description: Constricted Patient Cognition Impaired: Yes Ability to Follow Directions: Good Speech Pattern: Clear Hallucinations: None Delusions: Not Present Thought Process: Distracted and Slowed Thinking Thought Content: positive for [place] and positive for Poverty of Content Judgement: Fair Diagnostics Vital Signs (24Hr): Vital Signs - 24 hr 08/09/24 20:00 08/10/24 08:00 Temperature 96.8 F 97.6 F Pulse Rate 63 65 Respiratory Rate 16 16 Blood Pressure 135/60 127/59 L Pulse Oximetry 96 98 Oxygen Delivery Method Room Air Room Air BMI result Body Mass Index 34.5 Labs 08/06/24 07:31 Medications Medications Current Medications Acetaminophen (Acetaminophen 325 Mg Tablet) 650 mg PO Q6H PRN PRN Reason: Headache/Pain Mild Scale (1-3) Last Admin: 08/08/24 01:49 Dose: 650 mg Al Hydroxide/Mg Hydroxide (Magnesium Hydrox/Alum Hydrox 30 Ml Oral.Susp) 30 ml PO Q6H PRN PRN Reason: Heartburn/Nausea Apixaban (Apixaban 2.5 Mg Tablet) 2.5 mg PO BID [facility] Last Admin: 08/10/24 08:30 Dose: 2.5 mg Aripiprazole (Aripiprazole 20 Mg Tablet) 20 mg PO DAILY [facility] Last Admin: 08/10/24 08:31 Dose: 20 mg Aspirin (Aspirin 81 Mg Tab.Chew) 81 mg PO DAILY [facility] Last Admin: 08/10/24 08:32 Dose: 81 mg Atorvastatin Calcium (Atorvastatin Calcium 10 Mg Tablet) 10 mg PO DAILY [facility] Last Admin: 08/10/24 08:30 Dose: 10 mg Bumetanide (Bumetanide 1 Mg Tablet) 2 mg PO DAILY [facility] Last Admin: 08/10/24 08:31 Dose: 2 mg Divalproex Sodium (Divalproex Sodium 250 Mg Tablet.) 750 mg PO BID [facility] Last Admin: 08/10/24 09:29 Dose: 750 mg Ferrous Sulfate (Ferrous Sulfate 324 Mg Tablet.) 324 mg PO DAILY [facility] Last Admin: 08/10/24 08:32 Dose: 324 mg Hydrochlorothiazide (Hydrochlorothiazide 25 Mg Tablet) 25 mg PO DAILY [facility]; Protocol Last Admin: 08/10/24 08:31 Dose: 25 mg Hydroxyzine HCl (Hydroxyzine Hcl 25 Mg Tablet) 25 mg PO Q6H PRN PRN Reason: Anxiety Last Admin: 08/09/24 08:51 Dose: 25 mg Lorazepam (Lorazepam 1 Mg Tablet) 1 mg PO BEDTIME [facility] Last Admin: 08/09/24 20:29 Dose: 1 mg Magnesium Hydroxide (Milk Of Magnesia 30 Ml Oral.Susp) 30 ml PO DAILY PRN PRN Reason: Constipation Multivitamins/Vitamin C (Multivitamin Tablet) 1 tab PO DAILY [facility] Last Admin: 08/10/24 08:30 Dose: 1 tab Nicotine Polacrilex (Nicotine Polacrilex 2 Mg Gum) 2 mg BUCCAL Q2H PRN PRN Reason: Nicotine Cravings Olanzapine (Olanzapine Odt 10 Mg Tab.Rapdis) 10 mg TRANSLINGU Q6H PRN PRN Reason: agitation Last Admin: 08/09/24 14:37 Dose: 10 mg Olanzapine (Olanzapine Odt 10 Mg Tab.Rapdis) 20 mg TRANSLINGU BEDTIME [facility] Last Admin: 08/09/24 20:29 Dose: 20 mg Polyethylene Glycol (Polyethylene Glycol 3350 17 Gm Powd.Pack) 17 gm PO DAILY PRN PRN Reason: constipation Potassium Chloride (Potassium Chloride Er 20 Meq Tab.Er.Prt) 20 meq PO DAILY [facility] Last Admin: 08/10/24 08:32 Dose: 20 meq Tamsulosin HCl (Tamsulosin Hcl 0.4 Mg Capsule) 0.4 mg PO DAILY [facility] Last Admin: 08/10/24 08:31 Dose: 0.4 mg Trazodone HCl (Trazodone Hcl 50 Mg Tablet) 50 mg PO BEDTIME MRX1 PRN PRN Reason: Insomnia Last Admin: 08/09/24 01:34 Dose: 50 mg Trazodone HCl (Trazodone Hcl 100 Mg Tablet) 100 mg PO BEDTIME FE Last Admin: 08/09/24 20:29 Dose: 100 mg Allergies Allergies Allergy/AdvReac Type Severity Reaction Status Date / Time Unable to Assess Allergy Verified 08/05/24 03:15 Assessment & Plan Assessment & Plan (1) Bipolar 1 disorder, manic, moderate: Status: Acute Code(s): F31.12 - Bipolar disorder, current episode manic without psychotic features, moderate Plan Mr. Duarte is a 79 year-old male with hx of Bipolar Disorder type one. currently presenting with manic episode including decrease need for sleep, grandiose delusions of being the messiah, unlimited amounts of money coming from God.He has had 3 inpt psychiatric admission in the past 2 months. He is currently on depakote and abilify. noted parkinsonism. spoke with sister in law, pending collateral information from psych prescriber to get better idea of medication trials. will add olanzapine prn, may schedule some at night due to poor sleep. PLAN 1. increase olanzapine 20mg po qhs, abilify 20mg po daily, depakote 750mg po BID. 2. Continue with same treatment Reason for continued inpatient stay Substantial Risk for: inability to function, rapid decompensation and med/psych decompensation Time Spent With Patient Time: Total time managing care of this patient today __20__ minutes.
[2024-08-10 20:00] VITALS: BP 147/64; PULSE 68; RESP 17; TEMP 36.3; O2SAT 100
[2024-08-10] MEDS: LORazepam 1 MG TABLET PO (20:10)
[2024-08-10] MEDS: traZODone HCL 100 MG TABLET PO (20:11)
[2024-08-10] MEDS: OLANZapine ODT 10 MG TAB.RAPDIS 20 MG TRANSLINGU (20:11)
[2024-08-11 08:00] VITALS: BP 135/63; PULSE 61; RESP 18; TEMP 36.4; O2SAT 99
[2024-08-11] MEDS: Multivitamin TABLET 1 TAB PO (08:53)
[2024-08-11] MEDS: hydroCHLOROthiazide 25 MG TABLET PO (08:53)
[2024-08-11] MEDS: Divalproex Sodium 250 MG TABLET.DR 750 MG PO ×2 (08:53→21:07)
[2024-08-11] MEDS: Apixaban 2.5 MG TABLET PO ×2 (08:53→21:07)
[2024-08-11] MEDS: Atorvastatin Calcium 10 MG TABLET PO (08:53)
[2024-08-11] MEDS: Potassium Chloride ER 20 MEQ TAB.ER.PRT PO (08:53)
[2024-08-11] MEDS: Tamsulosin HCL 0.4 MG CAPSULE PO (08:53)
[2024-08-11] MEDS: Bumetanide 1 MG TABLET 2 MG PO (08:54)
[2024-08-11] MEDS: Ferrous Sulfate 324 MG TABLET.DR PO (08:54)
[2024-08-11] MEDS: ARIPiprazole 20 MG TABLET PO (08:54)
[2024-08-11] MEDS: Aspirin 81 MG TAB.CHEW PO (08:54)
--- NOTE | 2024-08-11 11:02 | P.PNPSI_ITS ---
Subjective Subjective Date of Service: 08/11/24 Reason For Visit: Medical history Subjective Notes: Conditional Voluntary Interim History: The nursing staff reported the patient had been falling asleep in his chair and he slept 5 hours the night. The social sciences instructor reported that she contact the primary care physician and apparently he is highly functional baseline but he is noncompliant with medications in the community and. 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 On interview the patient reports that he is doing well and he wants to get discharged as soon as possible, he denies side effects. He looks still manic Mental Status Exam Mental Status Exam Patient Appearance: Well Grooomed and Appropriate Patient Orientation: Person Level of Consciousness: Awake Patient Behavior: Talkative Mood Description: Calm Affect Description: Constricted and Labile Patient Cognition Impaired: Yes Ability to Follow Directions: Good Speech Pattern: Clear Hallucinations: None Delusions: Grandiose and Ideas of Reference Thought Process: Distracted Thought Content: positive for [place] and positive for Poverty of Content Judgement: Fair Diagnostics Vital Signs (24Hr): Vital Signs - 24 hr 08/10/24 20:00 08/11/24 08:00 Temperature 97.3 F 97.5 F Pulse Rate 68 61 Respiratory Rate 17 18 Blood Pressure 147/64 H 135/63 Pulse Oximetry 100 99 Oxygen Delivery Method Room Air Room Air BMI result Body Mass Index 34.7 Labs 08/06/24 07:31 Medications Medications Current Medications Acetaminophen (Acetaminophen 325 Mg Tablet) 650 mg PO Q6H PRN PRN Reason: Headache/Pain Mild Scale (1-3) Last Admin: 08/08/24 01:49 Dose: 650 mg Al Hydroxide/Mg Hydroxide (Magnesium Hydrox/Alum Hydrox 30 Ml Oral.Susp) 30 ml PO Q6H PRN PRN Reason: Heartburn/Nausea Apixaban (Apixaban 2.5 Mg Tablet) 2.5 mg PO BID [facility] Last Admin: 08/11/24 08:53 Dose: 2.5 mg Aripiprazole (Aripiprazole 20 Mg Tablet) 20 mg PO DAILY [facility] Last Admin: 08/11/24 08:54 Dose: 20 mg Aspirin (Aspirin 81 Mg Tab.Chew) 81 mg PO DAILY [facility] Last Admin: 08/11/24 08:54 Dose: 81 mg Atorvastatin Calcium (Atorvastatin Calcium 10 Mg Tablet) 10 mg PO DAILY [facility] Last Admin: 08/11/24 08:53 Dose: 10 mg Bumetanide (Bumetanide 1 Mg Tablet) 2 mg PO DAILY [facility] Last Admin: 08/11/24 08:54 Dose: 2 mg Divalproex Sodium (Divalproex Sodium 250 Mg Tablet.) 750 mg PO BID [facility] Last Admin: 08/11/24 08:53 Dose: 750 mg Ferrous Sulfate (Ferrous Sulfate 324 Mg Tablet.) 324 mg PO DAILY [facility] Last Admin: 08/11/24 08:54 Dose: 324 mg Hydrochlorothiazide (Hydrochlorothiazide 25 Mg Tablet) 25 mg PO DAILY [facility]; Protocol Last Admin: 08/11/24 08:53 Dose: 25 mg Hydroxyzine HCl (Hydroxyzine Hcl 25 Mg Tablet) 25 mg PO Q6H PRN PRN Reason: Anxiety Last Admin: 08/09/24 08:51 Dose: 25 mg Lorazepam (Lorazepam 1 Mg Tablet) 1 mg PO BEDTIME [facility] Last Admin: 08/10/24 20:10 Dose: 1 mg Magnesium Hydroxide (Milk Of Magnesia 30 Ml Oral.Susp) 30 ml PO DAILY PRN PRN Reason: Constipation Multivitamins/Vitamin C (Multivitamin Tablet) 1 tab PO DAILY [facility] Last Admin: 08/11/24 08:53 Dose: 1 tab Nicotine Polacrilex (Nicotine Polacrilex 2 Mg Gum) 2 mg BUCCAL Q2H PRN PRN Reason: Nicotine Cravings Olanzapine (Olanzapine Odt 10 Mg Tab.Rapdis) 10 mg TRANSLINGU Q6H PRN PRN Reason: agitation Last Admin: 08/09/24 14:37 Dose: 10 mg Olanzapine (Olanzapine Odt 10 Mg Tab.Rapdis) 20 mg TRANSLINGU BEDTIME [facility] Last Admin: 08/10/24 20:11 Dose: 20 mg Polyethylene Glycol (Polyethylene Glycol 3350 17 Gm Powd.Pack) 17 gm PO DAILY PRN PRN Reason: constipation Potassium Chloride (Potassium Chloride Er 20 Meq Tab.Er.Prt) 20 meq PO DAILY [facility] Last Admin: 08/11/24 08:53 Dose: 20 meq Tamsulosin HCl (Tamsulosin Hcl 0.4 Mg Capsule) 0.4 mg PO DAILY [facility] Last Admin: 08/11/24 08:53 Dose: 0.4 mg Trazodone HCl (Trazodone Hcl 50 Mg Tablet) 50 mg PO BEDTIME MRX1 PRN PRN Reason: Insomnia Last Admin: 08/09/24 01:34 Dose: 50 mg Trazodone HCl (Trazodone Hcl 100 Mg Tablet) 100 mg PO BEDTIME FE Last Admin: 08/10/24 20:11 Dose: 100 mg Allergies Allergies Allergy/AdvReac Type Severity Reaction Status Date / Time Unable to Assess Allergy Verified 08/05/24 03:15 Assessment & Plan Assessment & Plan (1) Bipolar 1 disorder, manic, moderate: Status: Acute Code(s): F31.12 - Bipolar disorder, current episode manic without psychotic features, moderate Plan Mr. Duarte is a 79 year-old male with hx of Bipolar Disorder type one. currently presenting with manic episode including decrease need for sleep, grandiose delusions of being the messiah, unlimited amounts of money coming from God.He has had 3 inpt psychiatric admission in the past 2 months. He is currently on depakote and abilify. noted parkinsonism. spoke with sister in law, pending collateral information from psych prescriber to get better idea of medication trials. will add olanzapine prn, may schedule some at night due to poor sleep. PLAN 1. increase olanzapine 20mg po qhs, abilify 20mg po daily, depakote 750mg po BID. 2. Continue with same treatment. 3. Depakote level for next Wednesday Reason for continued inpatient stay Substantial Risk for: inability to function, rapid decompensation and med/psych decompensation Time Spent With Patient Time: Total time managing care of this patient today __20__ minutes.
[2024-08-11 20:00] VITALS: BP 123/58; PULSE 67; RESP 18; TEMP 36.2; O2SAT 95
[2024-08-11] MEDS: OLANZapine ODT 10 MG TAB.RAPDIS 20 MG TRANSLINGU (21:07)
[2024-08-11] MEDS: traZODone HCL 100 MG TABLET PO (21:07)
[2024-08-11] MEDS: LORazepam 1 MG TABLET PO (21:07)
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
[2024-08-12 08:00] VITALS: BP 147/62; PULSE 61; RESP 18; TEMP 36.3; O2SAT 100
--- NOTE | 2024-08-12 08:06 | HO.PSYCHPN ---
Subjective Subjective Date of Service: 08/12/24 Reason For Visit: Medical history Diagnostics Vital Signs (24Hr): Vital Signs - 24 hr 08/11/24 20:00 Temperature 97.2 F Pulse Rate 67 Respiratory Rate 18 Blood Pressure 123/58 L Pulse Oximetry 95 Oxygen Delivery Method Room Air BMI result Body Mass Index 34.7 Labs 08/06/24 07:31 Medications Medications Current Medications Acetaminophen (Acetaminophen 325 Mg Tablet) 650 mg PO Q6H PRN PRN Reason: Headache/Pain Mild Scale (1-3) Last Admin: 08/08/24 01:49 Dose: 650 mg Al Hydroxide/Mg Hydroxide (Magnesium Hydrox/Alum Hydrox 30 Ml Oral.Susp) 30 ml PO Q6H PRN PRN Reason: Heartburn/Nausea Apixaban (Apixaban 2.5 Mg Tablet) 2.5 mg PO BID [facility] Last Admin: 08/11/24 21:07 Dose: 2.5 mg Aripiprazole (Aripiprazole 20 Mg Tablet) 20 mg PO DAILY [facility] Last Admin: 08/11/24 08:54 Dose: 20 mg Aspirin (Aspirin 81 Mg Tab.Chew) 81 mg PO DAILY [facility] Last Admin: 08/11/24 08:54 Dose: 81 mg Atorvastatin Calcium (Atorvastatin Calcium 10 Mg Tablet) 10 mg PO DAILY [facility] Last Admin: 08/11/24 08:53 Dose: 10 mg Bumetanide (Bumetanide 1 Mg Tablet) 2 mg PO DAILY [facility] Last Admin: 08/11/24 08:54 Dose: 2 mg Divalproex Sodium (Divalproex Sodium 250 Mg Tablet.) 750 mg PO BID [facility] Last Admin: 08/11/24 21:07 Dose: 750 mg Ferrous Sulfate (Ferrous Sulfate 324 Mg Tablet.) 324 mg PO DAILY [facility] Last Admin: 08/11/24 08:54 Dose: 324 mg Hydrochlorothiazide (Hydrochlorothiazide 25 Mg Tablet) 25 mg PO DAILY [facility]; Protocol Last Admin: 08/11/24 08:53 Dose: 25 mg Hydroxyzine HCl (Hydroxyzine Hcl 25 Mg Tablet) 25 mg PO Q6H PRN PRN Reason: Anxiety Last Admin: 08/09/24 08:51 Dose: 25 mg Lorazepam (Lorazepam 1 Mg Tablet) 1 mg PO BEDTIME [facility] Last Admin: 08/11/24 21:07 Dose: 1 mg Magnesium Hydroxide (Milk Of Magnesia 30 Ml Oral.Susp) 30 ml PO DAILY PRN PRN Reason: Constipation Multivitamins/Vitamin C (Multivitamin Tablet) 1 tab PO DAILY [facility] Last Admin: 08/11/24 08:53 Dose: 1 tab Nicotine Polacrilex (Nicotine Polacrilex 2 Mg Gum) 2 mg BUCCAL Q2H PRN PRN Reason: Nicotine Cravings Olanzapine (Olanzapine Odt 10 Mg Tab.Rapdis) 10 mg TRANSLINGU Q6H PRN PRN Reason: agitation Last Admin: 08/09/24 14:37 Dose: 10 mg Olanzapine (Olanzapine Odt 10 Mg Tab.Rapdis) 20 mg TRANSLINGU BEDTIME FE Last Admin: 08/11/24 21:07 Dose: 20 mg Polyethylene Glycol (Polyethylene Glycol 3350 17 Gm Powd.Pack) 17 gm PO DAILY PRN PRN Reason: constipation Potassium Chloride (Potassium Chloride Er 20 Meq Tab.Er.Prt) 20 meq PO DAILY [facility] Last Admin: 08/11/24 08:53 Dose: 20 meq Tamsulosin HCl (Tamsulosin Hcl 0.4 Mg Capsule) 0.4 mg PO DAILY [facility] Last Admin: 08/11/24 08:53 Dose: 0.4 mg Trazodone HCl (Trazodone Hcl 50 Mg Tablet) 50 mg PO BEDTIME MRX1 PRN PRN Reason: Insomnia Last Admin: 08/09/24 01:34 Dose: 50 mg Trazodone HCl (Trazodone Hcl 100 Mg Tablet) 100 mg PO BEDTIME [facility] Last Admin: 08/11/24 21:07 Dose: 100 mg Allergies Allergies Allergy/AdvReac Type Severity Reaction Status Date / Time Unable to Assess Allergy Verified 08/05/24 03:15 Assessment & Plan Assessment & Plan (1) Bipolar 1 disorder, manic, moderate: Status: Acute Code(s): F31.12 - Bipolar disorder, current episode manic without psychotic features, moderate Plan Mr. Duarte is a 79 year-old male with hx of Bipolar Disorder type one. currently presenting with manic episode including decrease need for sleep, grandiose delusions of being the messiah, unlimited amounts of money coming from God.He has had 3 inpt psychiatric admission in the past 2 months. He is currently on depakote and abilify. noted parkinsonism. spoke with sister in law, pending collateral information from psych prescriber to get better idea of medication trials. will add olanzapine prn, may schedule some at night due to poor sleep. PLAN 1. increase olanzapine 20mg po qhs, abilify 20mg po daily, depakote 750mg po BID. 2. Continue with same treatment. 3. Depakote level for next Wednesday Time Spent With Patient Time: Total time managing care of this patient today ____ minutes.
[2024-08-12] MEDS: Potassium Chloride ER 20 MEQ TAB.ER.PRT PO (08:45)
[2024-08-12] MEDS: hydroCHLOROthiazide 25 MG TABLET PO (08:49)
[2024-08-12] MEDS: Tamsulosin HCL 0.4 MG CAPSULE PO (08:49)
[2024-08-12] MEDS: Bumetanide 1 MG TABLET 2 MG PO (08:49)
[2024-08-12] MEDS: Atorvastatin Calcium 10 MG TABLET PO (08:49)
[2024-08-12] MEDS: Divalproex Sodium 250 MG TABLET.DR 750 MG PO ×2 (08:50→20:41)
[2024-08-12] MEDS: Aspirin 81 MG TAB.CHEW PO (08:50)
[2024-08-12] MEDS: Multivitamin TABLET 1 TAB PO (08:50)
[2024-08-12] MEDS: ARIPiprazole 20 MG TABLET PO (08:50)
[2024-08-12] MEDS: Ferrous Sulfate 324 MG TABLET.DR PO (08:50)
[2024-08-12] MEDS: Apixaban 2.5 MG TABLET PO ×2 (08:50→20:40)
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
[2024-08-12] MEDS: OLANZapine ODT 10 MG TAB.RAPDIS TRANSLINGU (14:40)
[2024-08-12 20:00] VITALS: BP 133/66; PULSE 72; RESP 18; TEMP 35.9; O2SAT 97
[2024-08-12] MEDS: LORazepam 1 MG TABLET PO (20:41)
[2024-08-12] MEDS: traZODone HCL 100 MG TABLET PO (20:41)
[2024-08-12] MEDS: OLANZapine ODT 10 MG TAB.RAPDIS 20 MG TRANSLINGU (20:41)
[2024-08-13] MEDS: traZODone HCL 50 MG TABLET PO (00:58)
[2024-08-13] MEDS: OLANZapine ODT 10 MG TAB.RAPDIS TRANSLINGU (00:59)
[2024-08-13] MEDS: hydrOXYzine HCL 25 MG TABLET PO (00:59)
[2024-08-13 09:00] VITALS: BP 149/71; PULSE 63; RESP 16; TEMP 36.9; O2SAT 99
[2024-08-13] MEDS: hydroCHLOROthiazide 25 MG TABLET PO (09:01)
[2024-08-13] MEDS: Potassium Chloride ER 20 MEQ TAB.ER.PRT PO (09:01)
[2024-08-13] MEDS: Aspirin 81 MG TAB.CHEW PO (09:01)
[2024-08-13] MEDS: Bumetanide 1 MG TABLET 2 MG PO (09:01)
[2024-08-13] MEDS: Apixaban 2.5 MG TABLET PO ×2 (09:02→23:19)
[2024-08-13] MEDS: ARIPiprazole 20 MG TABLET PO (09:02)
[2024-08-13] MEDS: Tamsulosin HCL 0.4 MG CAPSULE PO (09:02)
[2024-08-13] MEDS: Ferrous Sulfate 324 MG TABLET.DR PO (09:02)
[2024-08-13] MEDS: Atorvastatin Calcium 10 MG TABLET PO (09:02)
[2024-08-13] MEDS: Multivitamin TABLET 1 TAB PO (09:16)
[2024-08-13] MEDS: Divalproex Sodium 250 MG TABLET.DR 750 MG PO ×2 (09:16→20:57)
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
[2024-08-13 20:00] VITALS: BP 148/67; PULSE 74; RESP 16; TEMP 36.3; O2SAT 98
[2024-08-13] MEDS: OLANZapine ODT 10 MG TAB.RAPDIS 20 MG TRANSLINGU (20:59)
[2024-08-13] MEDS: traZODone HCL 100 MG TABLET PO (20:59)
[2024-08-13] MEDS: LORazepam 1 MG TABLET PO (20:59)
[2024-08-14 08:00] VITALS: BP 128/63; PULSE 61; RESP 18; TEMP 36.4; O2SAT 98
[2024-08-14 08:31] LABS: MANUAL DIFF FLAG NO
[2024-08-14 08:37] LABS: Basophils Absolute Auto 0.1 X10*3/uL (0.0-0.2); Basophils Percent Auto 0.8 % (0-2); Eosinophils Absolute Auto 0.3 X10*3/uL (0.0-0.4); Eosinophils Percent Auto 4.4 % (0-4); Hematocrit 40.7 % (42.0-52.0); Hemoglobin 13.8 g/dl (14.0-18.0); Imm Gran Abs Auto 0.13 X10*3/uL (0.00-0.03); Imm Gran Pct Auto 1.8 % (0.0-0.4); Lymphocytes Absolute Auto 1.8 X10*3/uL (1.2-4.9); Lymphocytes Percent Auto 25.1 % (20-40); Mean Corpuscular HGB Conc 33.9 g/dl (31.0-36.0); Mean Corpuscular Hemoglobin 32.5 pg (27.0-33.0); Mean Platelet Volume 9.8 fL (9.4-12.4); Monocytes Absolute Auto 1.2 X10*3/uL (0.1-1.2); Monocytes Percent Auto 16.9 % (2-11); Neutrophils Absolute Auto 3.7 x10*3/uL (2.0-8.3); Platelet Count 163 X10*3/uL (160-400); Red Blood Count 4.24 X10*6/uL (4.60-5.80); White Blood Count 7.3 X10*3/uL (4.8-10.8)
[2024-08-14] MEDS: Apixaban 2.5 MG TABLET PO ×2 (08:43→20:59)
[2024-08-14] MEDS: Atorvastatin Calcium 10 MG TABLET PO (08:43)
[2024-08-14] MEDS: Potassium Chloride ER 20 MEQ TAB.ER.PRT PO (08:43)
[2024-08-14] MEDS: hydroCHLOROthiazide 25 MG TABLET PO (08:44)
[2024-08-14] MEDS: Bumetanide 1 MG TABLET 2 MG PO (08:44)
[2024-08-14] MEDS: Multivitamin TABLET 1 TAB PO (08:44)
[2024-08-14] MEDS: Tamsulosin HCL 0.4 MG CAPSULE PO (08:44)
[2024-08-14] MEDS: Aspirin 81 MG TAB.CHEW PO (08:44)
[2024-08-14] MEDS: ARIPiprazole 20 MG TABLET PO (08:44)
[2024-08-14] MEDS: Ferrous Sulfate 324 MG TABLET.DR PO (08:44)
[2024-08-14] MEDS: Divalproex Sodium 250 MG TABLET.DR 750 MG PO ×2 (08:44→20:59)
[2024-08-14 08:52] LABS: Valproate 62.7 mcg/mL (50.0-100.0)
[2024-08-14 13:18] LABS: Alanine Aminotransferase 24 U/L (0-40); Albumin Level 4.1 g/dL (3.5-5.0); Alkaline Phosphatase 66 U/L (39-117); Anion Gap 14 (12-20); Aspartate Amino Transferase 22 U/L (5-37); Bilirubin Total 0.7 mg/dL (0.0-1.0); Blood Urea Nitrogen 27 mg/dL (9-16); Carbon Dioxide 35 mmol/L (22-29); Chloride 96 mmol/L (96-108); Estimated Glomerular Filt Rate 43; Glucose Fasting 208 mg/dL (60-99); Potassium 3.6 mmol/L (3.3-5.1); Sodium 141 mmol/L (135-145); Total Protein 7.4 g/dL (6.5-8.0)
--- NOTE | 2024-08-14 14:04 | P.PNPSI_ITS ---
Subjective Subjective Date of Service: 08/14/24 Reason For Visit: Medical history Interim History: The nursing staff reported no changes in his mental status he slept well compliant with treatment. Today we had a long interview in his room, he stated that he was doing very well, he reported that he had being feeling the last days that he was the massage and he had been confrontational with other people. No insight into his grandiose delusions but overall his behavior is well. He advocate for an early discharge. Mental Status Exam Mental Status Exam Patient Appearance: Appropriate Patient Orientation: Person and Situation Level of Consciousness: Awake and Appropriate Patient Behavior: Appropriate and Passive Mood Description: Calm Affect Description: Constricted Patient Cognition Impaired: Yes Ability to Follow Directions: Good Speech Pattern: Clear Hallucinations: None Delusions: Grandiose Thought Process: Distracted and Slowed Thinking Thought Content: positive for [place] and positive for Poverty of Content Judgement: Poor Diagnostics Vital Signs (24Hr): Vital Signs - 24 hr 08/13/24 20:00 08/14/24 08:00 Temperature 97.4 F 97.5 F Pulse Rate 74 61 Respiratory Rate 16 18 Blood Pressure 148/67 H 128/63 Pulse Oximetry 98 98 Oxygen Delivery Method Room Air Room Air BMI result Body Mass Index 34.7 Labs 08/14/24 08:24 08/14/24 12:33 Labs: Laboratory Results - last 48 hr 08/14/24 08/14/24 08:24 12:33 WBC 7.3 RBC 4.24 L Hgb 13.8 L Hct 40.7 L MCV 96.0 MCH 32.5 MCHC 33.9 RDW 13.0 Plt Count 163 MPV 9.8 Immature Gran % (Auto) 1.8 H Neut % (Auto) 51.0 Lymph % (Auto) 25.1 [place] % (Auto) 16.9 H Eos % (Auto) 4.4 H Baso % (Auto) 0.8 Lymph # (Auto) 1.8 [place] # (Auto) 1.2 Eos # (Auto) 0.3 Baso # (Auto) 0.1 Abs Immat Gran (auto) 0.13 H Absolute Neuts (auto) 3.7 Absolute Nucleated RBC 0.000 Nucleated RBC % (auto) 0.0 Sodium 141 Potassium 3.6 Chloride 96 Carbon Dioxide 35 H Anion Gap 14 BUN 27 H Creatinine 1.57 H Estim Creat Clear Calc 51.0 Estimated GFR 43 Fasting Glucose 208 H Calcium 10.0 Total Bilirubin 0.7 AST 22 ALT 24 Alkaline Phosphatase 66 Total Protein 7.4 Albumin 4.1 Valproic Acid 62.7 Medications Medications Current Medications Acetaminophen (Acetaminophen 325 Mg Tablet) 650 mg PO Q6H PRN PRN Reason: Headache/Pain Mild Scale (1-3) Last Admin: 08/08/24 01:49 Dose: 650 mg Al Hydroxide/Mg Hydroxide (Magnesium Hydrox/Alum Hydrox 30 Ml Oral.Susp) 30 ml PO Q6H PRN PRN Reason: Heartburn/Nausea Apixaban (Apixaban 2.5 Mg Tablet) 2.5 mg PO BID [facility] Last Admin: 08/14/24 08:43 Dose: 2.5 mg Aripiprazole (Aripiprazole 20 Mg Tablet) 20 mg PO DAILY [facility] Last Admin: 08/14/24 08:44 Dose: 20 mg Aspirin (Aspirin 81 Mg Tab.Chew) 81 mg PO DAILY [facility] Last Admin: 08/14/24 08:44 Dose: 81 mg Atorvastatin Calcium (Atorvastatin Calcium 10 Mg Tablet) 10 mg PO DAILY [facility] Last Admin: 08/14/24 08:43 Dose: 10 mg Bumetanide (Bumetanide 1 Mg Tablet) 2 mg PO DAILY [facility] Last Admin: 08/14/24 08:44 Dose: 2 mg Divalproex Sodium (Divalproex Sodium 250 Mg Tablet.) 750 mg PO BID [facility] Last Admin: 08/14/24 08:44 Dose: 750 mg Ferrous Sulfate (Ferrous Sulfate 324 Mg Tablet.) 324 mg PO DAILY [facility] Last Admin: 08/14/24 08:44 Dose: 324 mg Hydrochlorothiazide (Hydrochlorothiazide 25 Mg Tablet) 25 mg PO DAILY [facility]; Protocol Last Admin: 08/14/24 08:44 Dose: 25 mg Hydroxyzine HCl (Hydroxyzine Hcl 25 Mg Tablet) 25 mg PO Q6H PRN PRN Reason: Anxiety Last Admin: 08/13/24 00:59 Dose: 25 mg Lorazepam (Lorazepam 1 Mg Tablet) 1 mg PO BEDTIME [facility] Last Admin: 08/13/24 20:59 Dose: 1 mg Magnesium Hydroxide (Milk Of Magnesia 30 Ml Oral.Susp) 30 ml PO DAILY PRN PRN Reason: Constipation Multivitamins/Vitamin C (Multivitamin Tablet) 1 tab PO DAILY [facility] Last Admin: 08/14/24 08:44 Dose: 1 tab Nicotine Polacrilex (Nicotine Polacrilex 2 Mg Gum) 2 mg BUCCAL Q2H PRN PRN Reason: Nicotine Cravings Olanzapine (Olanzapine Odt 10 Mg Tab.Rapdis) 10 mg TRANSLINGU Q6H PRN PRN Reason: agitation Last Admin: 08/13/24 00:59 Dose: 10 mg Olanzapine (Olanzapine Odt 10 Mg Tab.Rapdis) 20 mg TRANSLINGU BEDTIME [facility] Last Admin: 08/13/24 20:59 Dose: 20 mg Polyethylene Glycol (Polyethylene Glycol 3350 17 Gm Powd.Pack) 17 gm PO DAILY PRN PRN Reason: constipation Potassium Chloride (Potassium Chloride Er 20 Meq Tab.Er.Prt) 20 meq PO DAILY [facility] Last Admin: 08/14/24 08:43 Dose: 20 meq Tamsulosin HCl (Tamsulosin Hcl 0.4 Mg Capsule) 0.4 mg PO DAILY [facility] Last Admin: 08/14/24 08:44 Dose: 0.4 mg Trazodone HCl (Trazodone Hcl 50 Mg Tablet) 50 mg PO BEDTIME MRX1 PRN PRN Reason: Insomnia Last Admin: 08/13/24 00:58 Dose: 50 mg Trazodone HCl (Trazodone Hcl 100 Mg Tablet) 100 mg PO BEDTIME [facility] Last Admin: 08/13/24 20:59 Dose: 100 mg Allergies Allergies Allergy/AdvReac Type Severity Reaction Status Date / Time Unable to Assess Allergy Verified 08/05/24 03:15 Assessment & Plan Assessment & Plan (1) Bipolar 1 disorder, manic, moderate: Status: Acute Code(s): F31.12 - Bipolar disorder, current episode manic without psychotic features, moderate Plan The patient is an elderly male, Gnosticism, with a long history of bipolar disorder who was brought into the facility after he was knocking on others people's rooms at 03:00 o'clock in the morning grossly disorganized and manic. He was restarted on his regular medications. Plan 1. Depakote level and other blood work came be within normal limits. We will keep the same dose. 2. Continue with other neuroleptics. 3. We will work with the social sciences instructor for a safe discharge plan. 4. Even though the patient is slightly hypomanic with grandiose delusions his behavior is for unstable. Reason for continued inpatient stay Substantial Risk for: inability to function, rapid decompensation and med/psych decompensation Time Spent With Patient Time: Total time managing care of this patient today __20__ minutes.
--- NOTE | 2024-08-14 15:00 | PM.EVENT ---
Event Note Date of Service: 08/14/24 Event Note: Patient is a 79-year-old male consulted for increasing creatinine. Creatinine last week 1.14, now 1.57. Decrease Bumex to 1 mg tomorrow, hold hydrochlorothiazide. Recheck labs in 48 hours. Encourage pt to push PO fluids. Time Spent With Patient Time: Total time managing care of this patient today 5 minutes.
[2024-08-14 20:00] VITALS: BP 141/72; PULSE 61; RESP 18; TEMP 36.1; O2SAT 100
[2024-08-14] MEDS: LORazepam 1 MG TABLET PO (20:59)
[2024-08-14] MEDS: OLANZapine ODT 10 MG TAB.RAPDIS 20 MG TRANSLINGU (20:59)
[2024-08-14] MEDS: traZODone HCL 100 MG TABLET PO (20:59)
[2024-08-14] MEDS: traZODone HCL 50 MG TABLET PO (23:03)
[2024-08-14] MEDS: OLANZapine ODT 10 MG TAB.RAPDIS TRANSLINGU (23:03)
[2024-08-14] MEDS: hydrOXYzine HCL 25 MG TABLET PO (23:03)
[2024-08-15 09:41] VITALS: BP 110/58; PULSE 54; RESP 18; TEMP 36.4; O2SAT 96
[2024-08-15] MEDS: Divalproex Sodium 250 MG TABLET.DR 750 MG PO ×2 (09:42→20:41)
[2024-08-15] MEDS: Bumetanide 1 MG TABLET PO (09:43)
[2024-08-15] MEDS: Aspirin 81 MG TAB.CHEW PO (09:43)
[2024-08-15] MEDS: Potassium Chloride ER 20 MEQ TAB.ER.PRT PO (09:43)
[2024-08-15] MEDS: Tamsulosin HCL 0.4 MG CAPSULE PO (09:44)
[2024-08-15] MEDS: Ferrous Sulfate 324 MG TABLET.DR PO (09:44)
[2024-08-15] MEDS: Apixaban 2.5 MG TABLET PO ×2 (09:44→20:41)
[2024-08-15] MEDS: ARIPiprazole 20 MG TABLET PO (09:44)
[2024-08-15] MEDS: Atorvastatin Calcium 10 MG TABLET PO (09:44)
[2024-08-15] MEDS: Multivitamin TABLET 1 TAB PO (09:45)
[2024-08-15] MEDS: hydrOXYzine HCL 25 MG TABLET PO ×2 (15:40→20:42)
--- NOTE | 2024-08-15 18:39 | PC.NURSE ---
Danny has been calling his HCP Michelle Whitaker today and leaving verbally abusive messages on her machine. It is very upsetting to her and she feels like he is not himself and cannot go home like this. He has been in and out of the hospital 4 times and he has never been this bad. If he wants to change his HCP it is OK with her.
[2024-08-15 20:00] VITALS: BP 152/70; PULSE 73; RESP 18; TEMP 36.2; O2SAT 98
[2024-08-15] MEDS: LORazepam 1 MG TABLET PO (20:41)
[2024-08-15] MEDS: OLANZapine ODT 10 MG TAB.RAPDIS 20 MG TRANSLINGU (20:41)
[2024-08-15] MEDS: traZODone HCL 100 MG TABLET PO (20:42)
[2024-08-16 07:55] VITALS: BP 104/56; PULSE 57; RESP 18; TEMP 36.8; O2SAT 98
[2024-08-16] MEDS: Aspirin 81 MG TAB.CHEW PO (08:18)
[2024-08-16] MEDS: Tamsulosin HCL 0.4 MG CAPSULE PO (08:18)
[2024-08-16] MEDS: Bumetanide 1 MG TABLET PO (08:18)
[2024-08-16] MEDS: Divalproex Sodium 250 MG TABLET.DR 750 MG PO ×2 (08:19→21:46)
[2024-08-16] MEDS: Atorvastatin Calcium 10 MG TABLET PO (08:19)
[2024-08-16] MEDS: Apixaban 2.5 MG TABLET PO ×2 (08:20→21:46)
[2024-08-16] MEDS: ARIPiprazole 20 MG TABLET PO (08:20)
[2024-08-16] MEDS: Ferrous Sulfate 324 MG TABLET.DR PO (08:20)
[2024-08-16] MEDS: Potassium Chloride ER 20 MEQ TAB.ER.PRT PO (08:20)
[2024-08-16] MEDS: Multivitamin TABLET 1 TAB PO (08:20)
--- NOTE | 2024-08-16 13:21 | P.PNPSI_ITS ---
Subjective Subjective Date of Service: 08/16/24 Reason For Visit: Medical history Subjective Notes: Conditional Voluntary Interim History: The nursing staff reported the patient signed a 3 day notice, he had been irritable but easily redirectable he slept 5 hours. On interview the patient denies new symptoms, he wants to leave tomorrow. At this moment there is no evidence of immediate risk to self or others. Mental Status Exam Mental Status Exam Patient Appearance: Appropriate Patient Orientation: Person and Situation Level of Consciousness: Awake Patient Behavior: Guarded Mood Description: Calm Affect Description: Constricted Patient Cognition Impaired: Yes Ability to Follow Directions: Good Speech Pattern: Clear Hallucinations: None Delusions: Not Present Thought Process: Intact Thought Content: positive for [place] and positive for Poverty of Content Judgement: Poor Diagnostics Vital Signs (24Hr): Vital Signs - 24 hr 08/15/24 20:00 08/16/24 07:55 Temperature 97.2 F 98.2 F Pulse Rate 73 57 Respiratory Rate 18 18 Blood Pressure 152/70 H 104/56 L Pulse Oximetry 98 98 Oxygen Delivery Method Room Air Room Air BMI result Body Mass Index 34.7 Labs 08/14/24 08:24 08/14/24 12:33 Medications Medications Current Medications Acetaminophen (Acetaminophen 325 Mg Tablet) 650 mg PO Q6H PRN PRN Reason: Headache/Pain Mild Scale (1-3) Last Admin: 08/08/24 01:49 Dose: 650 mg Al Hydroxide/Mg Hydroxide (Magnesium Hydrox/Alum Hydrox 30 Ml Oral.Susp) 30 ml PO Q6H PRN PRN Reason: Heartburn/Nausea Apixaban (Apixaban 2.5 Mg Tablet) 2.5 mg PO BID [facility] Last Admin: 08/16/24 08:20 Dose: 2.5 mg Aripiprazole (Aripiprazole 20 Mg Tablet) 20 mg PO DAILY [facility] Last Admin: 08/16/24 08:20 Dose: 20 mg Aspirin (Aspirin 81 Mg Tab.Chew) 81 mg PO DAILY [facility] Last Admin: 08/16/24 08:18 Dose: 81 mg Atorvastatin Calcium (Atorvastatin Calcium 10 Mg Tablet) 10 mg PO DAILY [facility] Last Admin: 08/16/24 08:19 Dose: 10 mg Bumetanide (Bumetanide 1 Mg Tablet) 1 mg PO DAILY [facility]; Protocol Last Admin: 08/16/24 08:18 Dose: 1 mg Divalproex Sodium (Divalproex Sodium 250 Mg Tablet.) 750 mg PO BID [facility] Last Admin: 08/16/24 08:19 Dose: 750 mg Ferrous Sulfate (Ferrous Sulfate 324 Mg Tablet.) 324 mg PO DAILY [facility] Last Admin: 08/16/24 08:20 Dose: 324 mg Hydrochlorothiazide (Hydrochlorothiazide 25 Mg Tablet) 25 mg PO DAILY [facility]; Protocol Last Admin: 08/14/24 08:44 Dose: 25 mg Hydroxyzine HCl (Hydroxyzine Hcl 25 Mg Tablet) 25 mg PO Q6H PRN PRN Reason: Anxiety Last Admin: 08/15/24 20:42 Dose: 25 mg Lorazepam (Lorazepam 1 Mg Tablet) 1 mg PO BEDTIME [facility] Last Admin: 08/15/24 20:41 Dose: 1 mg Magnesium Hydroxide (Milk Of Magnesia 30 Ml Oral.Susp) 30 ml PO DAILY PRN PRN Reason: Constipation Multivitamins/Vitamin C (Multivitamin Tablet) 1 tab PO DAILY [facility] Last Admin: 08/16/24 08:20 Dose: 1 tab Nicotine Polacrilex (Nicotine Polacrilex 2 Mg Gum) 2 mg BUCCAL Q2H PRN PRN Reason: Nicotine Cravings Olanzapine (Olanzapine Odt 10 Mg Tab.Rapdis) 10 mg TRANSLINGU Q6H PRN PRN Reason: agitation Last Admin: 08/14/24 23:03 Dose: 10 mg Olanzapine (Olanzapine Odt 10 Mg Tab.Rapdis) 20 mg TRANSLINGU BEDTIME [facility] Last Admin: 08/15/24 20:41 Dose: 20 mg Polyethylene Glycol (Polyethylene Glycol 3350 17 Gm Powd.Pack) 17 gm PO DAILY PRN PRN Reason: constipation Potassium Chloride (Potassium Chloride Er 20 Meq Tab.Er.Prt) 20 meq PO DAILY [facility] Last Admin: 08/16/24 08:20 Dose: 20 meq Tamsulosin HCl (Tamsulosin Hcl 0.4 Mg Capsule) 0.4 mg PO DAILY [facility] Last Admin: 08/16/24 08:18 Dose: 0.4 mg Trazodone HCl (Trazodone Hcl 50 Mg Tablet) 50 mg PO BEDTIME MRX1 PRN PRN Reason: Insomnia Last Admin: 08/14/24 23:03 Dose: 50 mg Trazodone HCl (Trazodone Hcl 100 Mg Tablet) 100 mg PO BEDTIME [facility] Last Admin: 08/15/24 20:42 Dose: 100 mg Allergies Allergies Allergy/AdvReac Type Severity Reaction Status Date / Time Unable to Assess Allergy Verified 08/05/24 03:15 Assessment & Plan Assessment & Plan (1) Bipolar 1 disorder, manic, moderate: Status: Acute Code(s): F31.12 - Bipolar disorder, current episode manic without psychotic features, moderate Plan The patient is an elderly male, Catholic, with a long history of bipolar disorder who was brought into the facility after he was knocking on others people's rooms at 03:00 o'clock in the morning grossly disorganized and manic. He was restarted on his regular medications. Plan 1. Depakote level and other blood work came be within normal limits. We will keep the same dose. 2. Continue with other neuroleptics. 3. We will work with the social sciences professor for a safe discharge plan. 4. Even though the patient is slightly hypomanic with grandiose delusions his behavior is safe and redirectable. Reason for continued inpatient stay Substantial Risk for: harm to others, rapid decompensation and med/psych decompensation Time Spent With Patient Time: Total time managing care of this patient today ____ minutes.
[2024-08-16 20:00] VITALS: BP 146/63; PULSE 63; RESP 18; TEMP 36; O2SAT 98
[2024-08-16] MEDS: LORazepam 1 MG TABLET PO (21:46)
[2024-08-16] MEDS: hydrOXYzine HCL 25 MG TABLET PO (21:47)
[2024-08-16] MEDS: OLANZapine ODT 10 MG TAB.RAPDIS 20 MG TRANSLINGU (21:47)
[2024-08-16] MEDS: traZODone HCL 100 MG TABLET PO (21:47)
[2024-08-16] MEDS: traZODone HCL 50 MG TABLET PO (23:39)
[2024-08-17] MEDS: Acetaminophen 325 MG TABLET 650 MG PO (03:07)
[2024-08-17 08:00] VITALS: BP 136/63; PULSE 56; RESP 18; TEMP 36.3; O2SAT 99
[2024-08-17] MEDS: Divalproex Sodium 250 MG TABLET.DR 750 MG PO ×2 (08:14→20:50)
[2024-08-17] MEDS: Aspirin 81 MG TAB.CHEW PO (08:14)
[2024-08-17] MEDS: Potassium Chloride ER 20 MEQ TAB.ER.PRT PO (08:14)
[2024-08-17] MEDS: Atorvastatin Calcium 10 MG TABLET PO (08:14)
[2024-08-17] MEDS: Multivitamin TABLET 1 TAB PO (08:14)
[2024-08-17] MEDS: Apixaban 2.5 MG TABLET PO ×2 (08:14→21:50)
[2024-08-17] MEDS: Ferrous Sulfate 324 MG TABLET.DR PO (08:14)
[2024-08-17] MEDS: Bumetanide 1 MG TABLET PO (08:14)
[2024-08-17] MEDS: ARIPiprazole 20 MG TABLET PO (08:15)
[2024-08-17] MEDS: Tamsulosin HCL 0.4 MG CAPSULE PO (08:15)
[2024-08-17 09:27] LABS: Anion Gap 12 (12-20); Blood Urea Nitrogen 28 mg/dL (9-16); Calcium 9.2 mg/dL (8.4-10.2); Carbon Dioxide 30 mmol/L (22-29); Chloride 101 mmol/L (96-108); Creatinine Clr Calc Pharmacy 83.4; Estimated Glomerular Filt Rate > 60; Glucose Random 169 mg/dL (60-115); Sodium 139 mmol/L (135-145)
--- NOTE | 2024-08-17 12:36 | P.PNPSI_ITS ---
Subjective Subjective Date of Service: 08/17/24 Reason For Visit: Medical history Subjective Notes: Conditional Voluntary Interim History: The nursing staff reported no changes in his mental status he looks more calm and cooperative. On interview the patient reported that he is excited to be discharged tomorrow. The aids social worker reported that his family and his prescriber had been calling advocating for a longer admission but at this point we do not have legal grounds to filed for Section 7 and 8. Mental Status Exam Mental Status Exam Patient Appearance: Well Grooomed and Appropriate Patient Orientation: Person and Situation Level of Consciousness: Awake and Appropriate Patient Behavior: Guarded and Passive Mood Description: Withdrawn Affect Description: Constricted Patient Cognition Impaired: Yes Ability to Follow Directions: Good Speech Pattern: Clear Hallucinations: None Delusions: Not Present Thought Process: Distracted and Slowed Thinking Thought Content: positive for [place] and positive for Poverty of Content Judgement: Fair Diagnostics Vital Signs (24Hr): Vital Signs - 24 hr 08/16/24 20:00 08/17/24 08:00 Temperature 96.8 F 97.4 F Pulse Rate 63 56 Respiratory Rate 18 18 Blood Pressure 146/63 H 136/63 Pulse Oximetry 98 99 Oxygen Delivery Method Room Air Room Air BMI result Body Mass Index 34.7 Labs 08/14/24 08:24 08/17/24 08:48 Labs: Laboratory Results - last 48 hr 08/17/24 08:48 Sodium 139 Potassium 4.0 Chloride 101 Carbon Dioxide 30 H Anion Gap 12 BUN 28 H Creatinine 0.96 Estim Creat Clear Calc 83.4 Estimated GFR > 60 Random Glucose 169 H Calcium 9.2 D Medications Medications Current Medications Acetaminophen (Acetaminophen 325 Mg Tablet) 650 mg PO Q6H PRN PRN Reason: Headache/Pain Mild Scale (1-3) Last Admin: 08/17/24 03:07 Dose: 650 mg Al Hydroxide/Mg Hydroxide (Magnesium Hydrox/Alum Hydrox 30 Ml Oral.Susp) 30 ml PO Q6H PRN PRN Reason: Heartburn/Nausea Apixaban (Apixaban 2.5 Mg Tablet) 2.5 mg PO BID [facility] Last Admin: 08/17/24 08:14 Dose: 2.5 mg Aripiprazole (Aripiprazole 20 Mg Tablet) 20 mg PO DAILY [facility] Last Admin: 08/17/24 08:15 Dose: 20 mg Aspirin (Aspirin 81 Mg Tab.Chew) 81 mg PO DAILY [facility] Last Admin: 08/17/24 08:14 Dose: 81 mg Atorvastatin Calcium (Atorvastatin Calcium 10 Mg Tablet) 10 mg PO DAILY [facility] Last Admin: 08/17/24 08:14 Dose: 10 mg Bumetanide (Bumetanide 1 Mg Tablet) 1 mg PO DAILY [facility]; Protocol Last Admin: 08/17/24 08:14 Dose: 1 mg Divalproex Sodium (Divalproex Sodium 250 Mg Tablet.) 750 mg PO BID [facility] Last Admin: 08/17/24 08:14 Dose: 750 mg Ferrous Sulfate (Ferrous Sulfate 324 Mg Tablet.) 324 mg PO DAILY [facility] Last Admin: 08/17/24 08:14 Dose: 324 mg Hydrochlorothiazide (Hydrochlorothiazide 25 Mg Tablet) 25 mg PO DAILY [facility]; Protocol Last Admin: 08/14/24 08:44 Dose: 25 mg Hydroxyzine HCl (Hydroxyzine Hcl 25 Mg Tablet) 25 mg PO Q6H PRN PRN Reason: Anxiety Last Admin: 08/16/24 21:47 Dose: 25 mg Lorazepam (Lorazepam 1 Mg Tablet) 1 mg PO BEDTIME [facility] Last Admin: 08/16/24 21:46 Dose: 1 mg Magnesium Hydroxide (Milk Of Magnesia 30 Ml Oral.Susp) 30 ml PO DAILY PRN PRN Reason: Constipation Multivitamins/Vitamin C (Multivitamin Tablet) 1 tab PO DAILY [facility] Last Admin: 08/17/24 08:14 Dose: 1 tab Nicotine Polacrilex (Nicotine Polacrilex 2 Mg Gum) 2 mg BUCCAL Q2H PRN PRN Reason: Nicotine Cravings Olanzapine (Olanzapine Odt 10 Mg Tab.Rapdis) 10 mg TRANSLINGU Q6H PRN PRN Reason: agitation Last Admin: 08/14/24 23:03 Dose: 10 mg Olanzapine (Olanzapine Odt 10 Mg Tab.Rapdis) 20 mg TRANSLINGU BEDTIME [facility] Last Admin: 08/16/24 21:47 Dose: 20 mg Polyethylene Glycol (Polyethylene Glycol 3350 17 Gm Powd.Pack) 17 gm PO DAILY PRN PRN Reason: constipation Potassium Chloride (Potassium Chloride Er 20 Meq Tab.Er.Prt) 20 meq PO DAILY [facility] Last Admin: 08/17/24 08:14 Dose: 20 meq Tamsulosin HCl (Tamsulosin Hcl 0.4 Mg Capsule) 0.4 mg PO DAILY [facility] Last Admin: 08/17/24 08:15 Dose: 0.4 mg Trazodone HCl (Trazodone Hcl 50 Mg Tablet) 50 mg PO BEDTIME MRX1 PRN PRN Reason: Insomnia Last Admin: 08/16/24 23:39 Dose: 50 mg Trazodone HCl (Trazodone Hcl 100 Mg Tablet) 100 mg PO BEDTIME [facility] Last Admin: 08/16/24 21:47 Dose: 100 mg Allergies Allergies Allergy/AdvReac Type Severity Reaction Status Date / Time Unable to Assess Allergy Verified 08/05/24 03:15 Assessment & Plan Assessment & Plan (1) Bipolar 1 disorder, manic, moderate: Status: Acute Code(s): F31.12 - Bipolar disorder, current episode manic without psychotic features, moderate Plan The patient is an elderly male, Restorationist, with a long history of bipolar disorder who was brought into the facility after he was knocking on others people's rooms at 03:00 o'clock in the morning grossly disorganized and manic. He was restarted on his regular medications. Plan 1. Depakote level and other blood work came be within normal limits. We will keep the same dose. 2. Continue with other neuroleptics. 3. We will work with the aids social worker for a safe discharge plan. 4. Even though the patient is slightly hypomanic with grandiose delusions his behavior is safe and redirectable. 5. Discharge on August 18 as 3 day notice expires. Reason for continued inpatient stay Substantial Risk for: inability to function, rapid decompensation and med/psych decompensation Time Spent With Patient Time: Total time managing care of this patient today __20__ minutes.
[2024-08-17 13:35] VITALS: BMI 40.9
[2024-08-17 20:00] VITALS: BP 149/66; PULSE 54; RESP 16; TEMP 36.3; O2SAT 100
[2024-08-17] MEDS: LORazepam 1 MG TABLET PO (20:49)
[2024-08-17] MEDS: OLANZapine ODT 10 MG TAB.RAPDIS 20 MG TRANSLINGU (20:49)
[2024-08-17] MEDS: traZODone HCL 100 MG TABLET PO (20:51)
[2024-08-17] MEDS: traZODone HCL 50 MG TABLET PO (23:56)
[2024-08-17] MEDS: hydrOXYzine HCL 25 MG TABLET PO (23:56)
[2024-08-18 08:00] VITALS: BP 146/60; PULSE 59; RESP 18; TEMP 36.4; O2SAT 99
--- NOTE | 2024-08-18 08:02 | PM.PSYDC ---
DS: Providers Provider Date of Service: 08/18/24 Date of admission: 08/05/24 01:52 Date of discharge: 08/18/24 Primary care physician: Unknown Physician Consults: 08/05/24 03:15 Consult to Hospitalist Routine Comment: Consulting Provider: Hospitalist Reason For Exam: medical H&P 08/05/24 04:14 Addiction Medicine Routine Consulting Provider: Addiction Covering Reason for consultation: per pt, I use marijuana daily 08/14/24 14:46 Consult to Hospitalist Routine Comment: Consulting Provider: Hospitalist Reason For Exam: elevated creatinine DS: Diagnosis Discharge Diagnosis (1) Bipolar 1 disorder, manic, moderate: Status: Acute DS: Medications Discharge Medications Home Medications: Home Medications ?Medication ?Instructions ?Recorded ?Confirmed DEKAs Plus (folic acid) 1 cap PO DAILY 08/05/24 08/05/24 Depakote 750 mg PO BID 08/05/24 08/05/24 aripiprazole 20 mg tablet 20 mg PO DAILY 08/05/24 08/05/24 aspirin 81 mg chewable tablet 1 tab PO DAILY 08/05/24 08/05/24 atorvastatin 10 mg tablet 10 mg PO DAILY 08/05/24 08/05/24 ferrous sulfate 324 mg PO DAILY 08/05/24 08/05/24 hydrochlorothiazide 25 mg tablet 25 mg PO DAILY 08/05/24 08/05/24 melatonin 5 mg tablet 5 mg PO BEDTIME PRN Sleep 08/05/24 08/05/24 polyethylene glycol 3350 17 gram 17 g PO DAILY PRN constipation 08/05/24 08/05/24 oral powder packet potassium chloride 20 meq PO DAILY 08/05/24 08/05/24 quetiapine 50 mg tablet 50 mg PO Q6H PRN Insomnia, 08/05/24 08/06/24 anxiety, agitation senna 2 tab PO BEDTIME 08/05/24 08/05/24 tamsulosin 0.4 mg capsule 0.4 mg PO DAILY 08/05/24 08/05/24 trazodone 100 mg tablet 100 mg PO BEDTIME 08/05/24 08/05/24 apixaban 2.5 mg tablet (Eliquis) 2.5 mg PO BID 08/06/24 08/06/24 Previous Rx's ?Medication ?Instructions ?Recorded bumetanide 2 mg PO DAILY #30 ea 08/09/24 bumetanide 1 mg tablet 2 mg (2 x 1 mg) PO DAILY #60 tabs 08/09/24 Mental Status Exam Mental Status Exam Patient Appearance: Well Grooomed Patient Orientation: Person and Situation Level of Consciousness: Awake and Appropriate Patient Behavior: Appropriate and Passive Mood Description: Calm Affect Description: Labile Patient Cognition Impaired: Yes Ability to Follow Directions: Good Speech Pattern: Clear Hallucinations: None Delusions: Grandiose Thought Process: Distracted and Evasive Thought Content: positive for Frederic and positive for Circumstantial Judgement: Fair Data Data Completed and Pending Completed studies during hospitalization [Text1]: 08/14/24 08/14/24 08/17/24 08:24 12:33 08:48 WBC 7.3 RBC 4.24 L Hgb 13.8 L Hct 40.7 L MCV 96.0 MCH 32.5 MCHC 33.9 RDW 13.0 Plt Count 163 MPV 9.8 Immature Gran % (Auto) 1.8 H Neut % (Auto) 51.0 Lymph % (Auto) 25.1 [place] % (Auto) 16.9 H Eos % (Auto) 4.4 H Baso % (Auto) 0.8 Lymph # (Auto) 1.8 [place] # (Auto) 1.2 Eos # (Auto) 0.3 Baso # (Auto) 0.1 Abs Immat Gran (auto) 0.13 H Absolute Neuts (auto) 3.7 Absolute Nucleated RBC 0.000 Nucleated RBC % (auto) 0.0 Sodium 141 139 Potassium 3.6 4.0 Chloride 96 101 Carbon Dioxide 35 H 30 H Anion Gap 14 12 BUN 27 H 28 H Creatinine 1.57 H 0.96 Estim Creat Clear Calc 51.0 83.4 Estimated GFR 43 > 60 Random Glucose 169 H Fasting Glucose 208 H Calcium 10.0 9.2 D Total Bilirubin 0.7 AST 22 ALT 24 Alkaline Phosphatase 66 Total Protein 7.4 Albumin 4.1 Valproic Acid 62.7 DS: Summary Hospital Course Hospital Course: The patient is a 79-year-old male with a past history of bipolar disorder who was brought to [facility] for sign and symptoms of angeli. He was assessed by crisis and transferring to this facility for psychiatric stabilization. Please see the HPI of the admission note for more details but it was clear that the patient had been decompensating for the last year after he had a knee surgery and he has mood stabilizers were stopped on the subacute rehab. He was knocking on others people's rooms at 02:00 o'clock in the morning he was grandiose stating that he was the [employer] and with grandiose delusions. Several collateral sources were collected such as her relative and her primary care of prescriber in the community that confirmed the clinical presentation. On admission, his mood stabilizers were restarted. The patient was fully compliant with treatment and he was grossly manic the 1st days of the admission. He was confrontational with other peers regarding political statements, even though, he was able to be redirected. While he was in the unit he has never been violent but p.r.n. p.o. medications were given. The patient's mood improved, he was sleeping much better he was fully compliant with treatment and, even though, delusional thinking and grandiosity, his behavior was much better. He signed a 3 day notice and I encouraged him continue treatment for a few more days but the patient refused to retract his 3 day notice. His relatives and primary care provider's contact us but unfortunately we did not have legal grounds to file a Section 7 and 8 since there was no immediate danger. His Depakote level was on a therapeutic range and he was kept on Abilify 20 mg and Zyprexa 20 mg p.o. q.h.s.. We did not do the cross taper since there were no full recovery of his angeli. The patient was discharged to the community with several appointments with aftercare with his regular providers., at the moment of the discharge there were no evidence of safety concerns. Time spent discussing smoking cessation with patient: 3 to 10 minutes Status at Discharge Cognitive/behavioral status at discharge: Impaired at baseline Functional status at discharge: uses cane/walker Overall status at discharge: patient is progressing back to baseline Time Spent with Patient Time attestation: Total time managing care of this patient today __30__ minutes. Time spent: Less than 30 minutes Discharge Plan Discharge Anticipated Discharge Date/Time: 08/18/24 10:00 Patient Disposition: Home, Self-Care Discharge Diagnosis: Bipolar disorder Referrals: [facility] [Other] - 08/19/24 ([facility] will restart your services Sunday 08/19. They will call you to confirm that you are home and give you a time when they will come on wednesday) Dr. Jairo Gramajo [Other] - 08/28/24 1:00 pm (You will see on this day for a follow up along with your psychiatrist Paula Alexandra. She will be apart of the meeting to discuss your last hospitalization and start the process of transferring you to a psychiatrist that can better accommodate your needs.) [facility] [Other] - 1 Week Discharge Medications: New bumetanide 1 mg Tablet 2 mg PO DAILY Qty: 60 0RF divalproex 250 mg Tablet,Delayed Release (Dr/Ec) 750 mg PO BID 30 Days Qty: 180 0RF potassium chloride 20 mEq Tablet,Er Particles/Crystals 20 meq PO DAILY 30 Days Qty: 30 0RF olanzapine 10 mg Tablet,Disintegrating 20 mg translingual BEDTIME 30 Days Qty: 60 0RF bumetanide 1 mg Tablet 1 mg PO DAILY 30 Days Qty: 30 0RF Protocol: Hold for SBP< HOLD for SBP < : 90 lorazepam 1 mg Tablet 1 mg PO BEDTIME 30 Days Qty: 30 0RF Continued bumetanide 2 mg PO DAILY Qty: 30 0RF polyethylene glycol 3350 17 gram powder in packet 17 g PO DAILY PRN (Reason: constipation) 30 Days Qty: 30 0RF atorvastatin 10 mg tablet 10 mg PO DAILY 30 Days Qty: 30 0RF tamsulosin 0.4 mg capsule 0.4 mg PO DAILY 30 Days Qty: 30 0RF trazodone 100 mg tablet 100 mg PO BEDTIME 30 Days Qty: 30 0RF aspirin 81 mg tablet,chewable 1 tab PO DAILY 30 Days Qty: 30 0RF hydrochlorothiazide 25 mg tablet 25 mg PO DAILY 30 Days Qty: 30 0RF aripiprazole 20 mg tablet 20 mg PO DAILY 30 Days Qty: 30 0RF Eliquis 2.5 mg tablet 2.5 mg PO BID 30 Days Qty: 60 0RF DEKAs Plus (folic acid) 1 cap PO DAILY 30 Days Qty: 30 0RF ferrous sulfate 324 mg PO DAILY 30 Days Qty: 30 0RF Rx Instructions: This medication is Ferrous Sulfate 324mg EC to be taken with breakfast Discontinued quetiapine 50 mg tablet 50 mg PO Q6H PRN (Reason: Insomnia, anxiety, agitation) melatonin 5 mg tablet 5 mg PO BEDTIME PRN (Reason: Sleep) Depakote tablet 750 mg PO BID Rx Instructions: This medication is Depakote DR tablet potassium chloride 20 meq PO DAILY senna 2 tab PO BEDTIME Discharge Orders: Discharge Order (Routine); Ordered 08/18/24 Ordered By: Marquez Chapa Diet: Advance to usual diet Activity on Discharge: As tolerated Stand Alone Forms: Patient Portal Discharge page Print Language: Mohawk Care Plan Goals: Care plan goals were achieved at this admission at this moment the patient does not have unsafe behaviors. Health Concerns: Continue treatment with primary care physician and other specialists in the community. Plan of Treatment: Continue psychiatric treatment with his regular providers as an outpatient. Assessment: The patient is an elderly Jew male with a past history of bipolar disorder that got worse in the last year since his mood stabilizers were stopped after a knee surgery. He was readmitted due to manic symptoms that improved with Abilify, Zyprexa and Depakote the tolerated it very well. At the moment of the discharge the patient was safe to be discharged in the community. He signed a 3 day notice and at the moment of the discharge, we did not have legal grounds to file a Section 7 and 8..
[2024-08-18] MEDS: Potassium Chloride ER 20 MEQ TAB.ER.PRT PO (08:59)
[2024-08-18] MEDS: Multivitamin TABLET 1 TAB PO (08:59)
[2024-08-18] MEDS: Ferrous Sulfate 324 MG TABLET.DR PO (08:59)
[2024-08-18] MEDS: Tamsulosin HCL 0.4 MG CAPSULE PO (08:59)
[2024-08-18] MEDS: Aspirin 81 MG TAB.CHEW PO (08:59)
[2024-08-18] MEDS: ARIPiprazole 20 MG TABLET PO (08:59)
[2024-08-18] MEDS: Bumetanide 1 MG TABLET PO (09:00)
[2024-08-18] MEDS: Atorvastatin Calcium 10 MG TABLET PO (09:00)
[2024-08-18] MEDS: Apixaban 2.5 MG TABLET PO (09:00)
[2024-08-18] MEDS: Divalproex Sodium 250 MG TABLET.DR 750 MG PO (09:00)
== END 2024-08-18 11:30 | disposition home or self-care (01) | DRG 885 ==
PROVIDERS: Physician Assistant; Social Worker; Admitting Provider Psychiatry & Neurology Psychiatry; Visit Provider Psychiatry & Neurology Psychiatry
DX: F31.12 Bipolar disorder, current episode manic without psychotic features, moderate (principal); G20.C Parkinsonism, unspecified; Z87.891 Personal history of nicotine dependence; Z79.01 Long term (current) use of anticoagulants; Z79.82 Long term (current) use of aspirin; Z79.899 Other long term (current) drug therapy
CPT/HCPCS: 36415; 80048; 80053; 80061; 80164; 82607; 83036; 84443; 85025; 93005

== ENCOUNTER 2024-08-05 01:52 | Outpatient (BNV) | payer OTHER, SELFPAY | END 2024-08-06 21:57 | PROVIDERS: Admitting Provider Psychiatry & Neurology Psychiatry; Visit Provider Internal Medicine | DX: I45.2 Bifascicular block (principal); R94.31 Abnormal electrocardiogram [ECG] [EKG] | CPT/HCPCS: 93010 ==

== ENCOUNTER → 2024-08-05 01:52 | Outpatient (BNV) | payer OTHER, SELFPAY | PROVIDERS: Admitting Provider Psychiatry & Neurology Psychiatry; Visit Provider Internal Medicine | DX: I45.81 Long QT syndrome (principal) | CPT/HCPCS: 93010 ==

== ENCOUNTER → 2024-08-05 01:52 | Outpatient (BNV) | payer OTHER, SELFPAY | PROVIDERS: Admitting Provider Psychiatry & Neurology Psychiatry; Visit Provider Social Worker | DX: F31.12 Bipolar disorder, current episode manic without psychotic features, moderate (principal) | CPT/HCPCS: 90792; 99231; 99232; 99238 ==

== ENCOUNTER → 2024-08-05 01:52 | Outpatient (BNV) | payer OTHER, SELFPAY | PROVIDERS: Admitting Provider Psychiatry & Neurology Psychiatry; Visit Provider Nurse Practitioner Acute Care | DX: F31.12 Bipolar disorder, current episode manic without psychotic features, moderate (principal); E78.5 Hyperlipidemia, unspecified; I10 Essential (primary) hypertension | CPT/HCPCS: 99222; 99499 ==